=== PATIENT | male | born 1965 | race Caucasian/White ===

== ENCOUNTER 2017-10-29 07:15 | Observation (INO) | payer SELFPAY ==
[2017-10-29] VITALS (8 sets, daily range): BP systolic 128–168; BP diastolic 65–88; PULSE 52–73; RESP 18–22; TEMP 95.8–98.2; O2SAT 96–100
[~2017-10-29] VITALS: Ht 188 cm; Wt 80.0 kg
[~2017-10-29 07:15] MED LIST: KCL20 PO
--- NOTE | 2017-10-29 07:39 | PD ---
HPI Chief Complaint: Respiratory Distress Time Seen by Provider: 07:21 Travel History International Travel<30 days: No Contact w/Intl Traveler<30days: No Traveled to known affect area: No History of Present Illness HPI Patient is a 52-year-old male smoker with a history of COPD presents the emergency department for evaluation of left-sided chest tightness. Patient states last night he began to have a sensation like an elephant was sitting on his chest accompanied with some shortness of breath. He states that anytime he laid down to try to go to sleep shortness of breath got a lot worse and so he decided to call 9 1 this morning. He also endorses cough and congestion for the past few days and thinks that he might have the flu. When discussing with his mother she was concerned that if he had the flu with his COPD that he might get very sick. Denies any fevers or body aches. He states it felt like an elephant was sitting on his chest this morning. He has never had a cardiac catheterization, no history of heart attack. He has not had a checkup in some years, does not take his regular medicines for COPD. EMS reported that his room air saturation was 96% and gave him a breathing treatment on arrival to the emergency department he is feeling better. [facility] Past Medical History COPD: Yes GERD: Yes Sickle Cell Disease: No ?: Not Past Surgical History Other Surgery: Yes (RIGHT HEEL FX 2006, L hip) Social History Alcohol Use: No Tobacco Use: Yes (1 PPD) Substance Use: No Allergies-Medications (Allergen,Severity, Reaction): Coded Allergies: No Known Allergies (Unverified Allergy, Unknown, 10/29/17) Reported Meds & Prescriptions Reported Meds & Active Scripts Active No Active Prescriptions or Reported Medications Review of Systems Except as stated in HPI: all other systems reviewed are Neg Physical Exam Narrative GENERAL: Well-developed, thin in no obvious distress. SKIN: Focused skin assessment warm/dry. HEAD: Atraumatic. Normocephalic. EYES: Pupils equal and round. No scleral icterus. No injection or drainage. ENT: No nasal bleeding or discharge. Mucous membranes pink and moist. NECK: Trachea midline. No JVD. CARDIOVASCULAR: Regular rate and rhythm. No murmur appreciated. 2+ bilateral equal pulses in all 4 extremities, no pedal edema. RESPIRATORY: No accessory muscle use. Scant bibasilar wheeze. Breath sounds equal bilaterally. No increased work of breathing. No retractions. GASTROINTESTINAL: Abdomen soft, non-tender, nondistended. Hepatic and splenic margins not palpable. MUSCULOSKELETAL: No obvious deformities. No clubbing. No cyanosis. No edema. NEUROLOGICAL: Awake and alert. No obvious cranial nerve deficits. Motor grossly within normal limits. Normal speech. PSYCHIATRIC: Appropriate mood and affect; insight and judgment normal. Data Data Last Documented VS Vital Signs Date Time Temp Pulse Resp B/P (MAP) Pulse Ox O2 Delivery O2 Flow Rate FiO2 10/29/17 07:57 Nasal Cannula 2.00 10/29/17 07:57 98 10/29/17 07:18 97.7 56 22 168/88 (114) Orders Orders Electrocardiogram (10/29/17 ) B-Type Natriuretic Peptide (10/29/17 07:32) Ckmb (Isoenzyme) Profile (10/29/17 07:32) Complete Blood Count With Diff (10/29/17 07:32) Comprehensive Metabolic Panel (10/29/17 07:32) Magnesium (Mg) (10/29/17 07:32) Prothrombin Time / Inr (Pt) (10/29/17 07:32) Act Partial Throm Time (Ptt) (10/29/17 07:32) Troponin I (10/29/17 07:32) Ecg Monitoring (10/29/17 07:32) Iv Access Insert/Monitor (10/29/17 07:32) Oximetry (10/29/17 07:32) Oxygen Administration (10/29/17 07:32) Aspirin Chew (Aspirin Chew) (10/29/17 07:45) Sodium Chloride 0.9% Flush (Ns Flush) (10/29/17 07:45) Chest, Pa & Lat (10/29/17 07:32) CKMB (10/29/17 07:35) CKMB% (10/29/17 07:35) Admit Order (Ed Use Only) (10/29/17 ) Labs Laboratory Tests Test 10/29/17 07:35 White Blood Count 12.6 TH/MM3 Red Blood Count 4.67 MIL/MM3 Hemoglobin 14.2 GM/DL Hematocrit 42.0 % Mean Corpuscular Volume 89.9 FL Mean Corpuscular Hemoglobin 30.4 PG Mean Corpuscular Hemoglobin Concent 33.8 % Red Cell Distribution Width 14.0 % Platelet Count 167 TH/MM3 Mean Platelet Volume 11.2 FL Neutrophils (%) (Auto) 67.5 % Lymphocytes (%) (Auto) 19.1 % Monocytes (%) (Auto) 6.8 % Eosinophils (%) (Auto) 5.6 % Basophils (%) (Auto) 1.0 % Neutrophils # (Auto) 8.5 TH/MM3 Lymphocytes # (Auto) 2.4 TH/MM3 Monocytes # (Auto) 0.8 TH/MM3 Eosinophils # (Auto) 0.7 TH/MM3 Basophils # (Auto) 0.1 TH/MM3 CBC Comment DIFF FINAL Differential Comment Prothrombin Time 10.7 SEC Prothromb Time International Ratio 1.1 RATIO Activated Partial Thromboplast Time 27.9 SEC Blood Urea Nitrogen 8 MG/DL Creatinine 0.79 MG/DL Random Glucose 122 MG/DL Total Protein 8.0 GM/DL Albumin 3.6 GM/DL Calcium Level 9.0 MG/DL Magnesium Level 2.2 MG/DL Alkaline Phosphatase 74 U/L Aspartate Amino Transf (AST/SGOT) 42 U/L Alanine Aminotransferase (ALT/SGPT) 73 U/L Total Bilirubin 0.4 MG/DL Sodium Level 139 MEQ/L Potassium Level 4.6 MEQ/L Chloride Level 105 MEQ/L Carbon Dioxide Level 30.4 MEQ/L Anion Gap 4 MEQ/L Estimat Glomerular Filtration Rate 102 ML/MIN Total Creatine Kinase 179 U/L Creatine Kinase MB 4.1 NG/ML Troponin I LESS THAN 0.02 NG/ML B-Type Natriuretic Peptide 96 PG/ML MDM Medical Decision Making Medical Screen Exam Complete: Yes Emergency Medical Condition: Yes Interpretation(s) EKG independently interpreted by me, left bundle branch block, otherwise sinus bradycardia rate 54, intervals otherwise within normal limits. No sgarbossa criteria. Comparison to May 2016 shows no change. Differential Diagnosis ACS, [place], COPD exacerbation. Narrative Course Patient room to the emergency department, he describes his chest as having an elephant sitting on top of it. He is feeling better on arrival to the emergency department, he is a cigarette smoker otherwise his history is negative with the patient has not seen a regular physician in some years. Initial workup does show left bundle branch block but otherwise troponin blood work and a chest x-ray are negative. I discussed with the patient that given his symptoms need to consider cardiac etiology and recommended him for a stress test, he has no primary care physician which to follow-up with therefore will be admitted observation of the chest pain center Diagnosis Primary Impression: Chest tightness or pressure Admitting Information Admitting Physician Requests: Observation Scripts No Active Prescriptions or Reported Meds Condition: Stable Umair Chaudhry MD Oct 29, 2017 07:39
[2017-10-29] MEDS ORDERED: ASPIRIN 81 MG CHEW TAB PO ONE (07:45)
[2017-10-29] MEDS ORDERED: SODIUM CHLORIDE 0.9% FLUSH 10 ML FLUSH IVF PRN (07:45)
[2017-10-29 07:57] LABS: AUTOMATED NEUTROPHIL # 8.5 TH/MM3 (1.8-7.7); BASOPHIL # 0.1 TH/MM3 (0-0.2); EOSINOPHIL # 0.7 TH/MM3 (0-0.4); EOSINOPHIL % 5.6 % (0.0-4.0); HEMOGLOBIN 14.2 GM/DL (13.0-17.0); LYMPH % 19.1 % (9.0-44.0); LYMPHOCYTE # 2.4 TH/MM3 (1.0-4.8); MEAN CELL VOLUME 89.9 FL (80.0-100.0); MEAN CORPUSCULAR HEMOGLOBIN 30.4 PG (27.0-34.0); MEAN CORPUSCULAR HGB CONC 33.8 % (32.0-36.0); MEAN PLATELET VOLUME 11.2 FL (7.0-11.0); MONO % 6.8 % (0.0-8.0); MONOCYTE # 0.8 TH/MM3 (0-0.9); NEUT % 67.5 % (16.0-70.0); PLATELET COUNT 167 TH/MM3 (150-450); RED BLOOD COUNT 4.67 MIL/MM3 (4.50-5.90); WHITE BLOOD COUNT 12.6 TH/MM3 (4.0-11.0)
[2017-10-29 08:04] LABS: INTERNATIONAL NORMALIZED RATIO 1.1 RATIO; PROTHROMBIN TIME - PATIENT 10.7 SEC (9.8-11.6)
--- NOTE | 2017-10-29 08:14 | RADRPT ---
EXAM DATE/TIME: 10/29/2017 07:50 [facility] COMPARISON: No previous studies available for comparison. INDICATIONS : Chest pain. MEDICAL HISTORY : Chronic obstructive pulmonary disease. SURGICAL HISTORY : None. ENCOUNTER: Initial ACUITY: 1 day PAIN SCORE: 0/10 LOCATION: Bilateral chest FINDINGS: Heart size is normal. The lungs are hyperinflated. The lungs are clear. No effusion is seen. CONCLUSION: Hyperinflated lungs. Rizwan Kaminski MD on October 29, 2017 at 8:11 Board Certified Radiologist. This report was verified electronically.
[2017-10-29 08:15] LABS: ALBUMIN 3.6 GM/DL (3.4-5.0); ALT (GPT) 73 U/L (12-78); AST (GOT) 42 U/L (15-37); BICARBONATE 30.4 MEQ/L (21.0-32.0); BLOOD UREA NITROGEN 8 MG/DL (7-18); CHLORIDE 105 MEQ/L (98-107); CREATININE 0.79 MG/DL (0.60-1.30); GLOMERULAR FILTRATION RATE 102 ML/MIN (>89); GLUCOSE,RANDOM 122 MG/DL (74-106); MAGNESIUM 2.2 MG/DL (1.5-2.5); SODIUM (NA) 139 MEQ/L (136-145)
[2017-10-29 08:19] LABS: ALKALINE PHOSPHATASE 74 U/L (45-117); TOTAL BILIRUBIN ADULT 0.4 MG/DL (0.2-1.0); TROPONIN I LESS THAN 0.02 NG/ML (0.02-0.05)
[2017-10-29] MEDS ORDERED: IOHEXOL 350 MG/ML 50 ML BTL (for Cath Lab) OTHER ONE (10:09)
[2017-10-29] MEDS ORDERED: NITROGLYCERIN 0.4 MG SL 25 TABS/BTL SL PRN (10:45)
[2017-10-29] MEDS ORDERED: ONDANSETRON HCL 4 MG/2 ML VIAL IV PUSH PRN (10:45)
[2017-10-29] MEDS ORDERED: ACETAMINOPHEN 500 MG CPLT PO PRN (10:45)
[2017-10-29 11:35] LABS: TROPONIN I LESS THAN 0.02 NG/ML (0.02-0.05)
--- NOTE | 2017-10-29 12:39 | HHI.HP ---
HPI Primary Care Physician No Primary Care Physician Chief Complaint Chest pressure History of Present Illness 52-year-old male with known COPD and GERD presents to emergency room for further evaluation of dyspnea and chest pressure. Developed flulike symptoms including body aches and productive cough. Stayed home from work yesterday due to flu-like symptoms. Onset of dyspnea last evening. Unable to sleep due to dyspnea. Known COPD, however unable to afford inhalers and does not have a PCP. Onset of chest pressure "like an elephant sitting on my chest," 11pm, progressively becoming worse throughout evening. No radiation of pain. Duration approximately 6 hours. No associated symptoms of nausea, vomiting, or diaphoresis. No known precipitating factors. Relieving factors albuterol treatment and oxygen given by [facility], reporting relief almost immediately. Endorses similar chest pressure in the past when first being diagnoses with COPD. Review of Systems General: Recent flulike symptoms beginning , Reports fatigue and productive cough. HEENT: No TRIANA, no vision changes, no nasal congestion or drainage, no dysphasia CV: As stated above. No current chest pain or pressure. Intermittent palpitations, intermittent leg pain, or dizziness. RESP: Known COPD, no medications or inhalers. Dyspnea improved. Productive cough , reports clear, thin phlegm. No hemoptysis GI: No nausea, vomiting, bowel changes, diarrhea, constipation, pain, distention , melena, or blood in the stool. No unintentional weight gain or weight loss. : No dysuria, urgency, frequency EXT: No lower leg edema, no paraesthesias MS: No discomfort or change in ROM NEURO: No change in memory, difficulty with balance, LOC, motor/sensory deficits PSYCH: No anxiety, depression. Current increased situational stress. SKIN: No rashes, no concerning lesions Past Family Social History Allergies: Coded Allergies: No Known Allergies (Unverified Allergy, Unknown, 10/29/17) Past Medical History COPD, GERD, current smoker Past Surgical History Right foot surgery, left hip ORIF Reported Medications Reported Meds & Active Scripts Active No Active Prescriptions or Reported Medications Active Ordered Medications Current Medications Medications (Trade) Dose Ordered Sig/Paul Route Start Time Stop Time Status Last Admin (NS Flush) 2 ml UNSCH PRN IVF 10/29/17 07:45 10/29/17 08:02 (NS Flush) 2 ml BID IV FLUSH 10/29/17 21:00 (Tylenol) 500 mg Q4H PRN PO 10/29/17 10:45 (Zofran Inj) 4 mg Q6H PRN IV PUSH 10/29/17 10:45 (Nitrostat Sl) 0.4 mg Q5M PRN SL 10/29/17 10:45 (Aspirin) 325 mg DAILY PO 10/30/17 09:00 Family History Noncontributory for early onset cardiovascular disease Social History No known coronary artery disease, hypertension, hyperlipidemia, or diabetes. Current smoker, 40 -pack-year history. Denies any alcohol or illegal drug use. . Works as a temple. Endorses an active lifestyle. Past cardiac testing None Physical Exam Vital Signs Vital Signs Date Time Temp Pulse Resp B/P (MAP) Pulse Ox O2 Delivery O2 Flow Rate FiO2 10/29/17 11:01 10/29/17 11:00 57 18 143/77 (99) 100 Room Air 10/29/17 07:57 Nasal Cannula 2.00 10/29/17 07:57 98 Nasal Cannula 2.00 10/29/17 07:18 97.7 56 22 168/88 (114) 100 Physical Exam GENERAL: Alert WN, WD, NAD, pleasant, thin, male who appears older than stated age. HEAD: NC, AT NECK: Supple, no masses, trachea midline CV: RRR, without murmur, rub, gallop, no JVD, S1-S2 no S3-S4. No carotid bruits. Chest wall nontender with palpation. RESP: Diminished throughout bilateral, no crackles, wheeze, or rhonchi. symmetrical chest rise, nonlabored, able to speak in full sentences ABD: Soft, NT, ND, no masses, positive bowel tones, flat BACK: No scoliosis EXT: Pulses +24, no dependent edema MS: Normal tone 4 extremities, no obvious deformities, full range of motion NEURO: CN II through CN XII grossly intact, motor strength 5/5 PSYCH: A+O 3, pleasant affect, appropriate speech, mood, insight and judgment SKIN: Normal turgor, normal texture, no lesions, no rashes, brisk cap refill, even hair distribution, tattoos Laboratory Laboratory Tests Test 10/29/17 07:35 10/29/17 10:55 White Blood Count 12.6 Red Blood Count 4.67 Hemoglobin 14.2 Hematocrit 42.0 Mean Corpuscular Volume 89.9 Mean Corpuscular Hemoglobin 30.4 Mean Corpuscular Hemoglobin Concent 33.8 Red Cell Distribution Width 14.0 Platelet Count 167 Mean Platelet Volume 11.2 Neutrophils (%) (Auto) 67.5 Lymphocytes (%) (Auto) 19.1 Monocytes (%) (Auto) 6.8 Eosinophils (%) (Auto) 5.6 Basophils (%) (Auto) 1.0 Neutrophils # (Auto) 8.5 Lymphocytes # (Auto) 2.4 Monocytes # (Auto) 0.8 Eosinophils # (Auto) 0.7 Basophils # (Auto) 0.1 CBC Comment DIFF FINAL Differential Comment Prothrombin Time 10.7 Prothromb Time International Ratio 1.1 Activated Partial Thromboplast Time 27.9 Blood Urea Nitrogen 8 Creatinine 0.79 Random Glucose 122 Total Protein 8.0 Albumin 3.6 Calcium Level 9.0 Magnesium Level 2.2 Alkaline Phosphatase 74 Aspartate Amino Transf (AST/SGOT) 42 Alanine Aminotransferase (ALT/SGPT) 73 Total Bilirubin 0.4 Sodium Level 139 Potassium Level 4.6 Chloride Level 105 Carbon Dioxide Level 30.4 Anion Gap 4 Estimat Glomerular Filtration Rate 102 Total Creatine Kinase 179 133 Creatine Kinase MB 4.1 3.0 Troponin I LESS THAN 0.02 LESS THAN 0.02 B-Type Natriuretic Peptide 96 Result Diagram: 10/29/1735 10/29/1735 Imaging Last 48 hours Impressions Chest X-Ray 10/29/17 0732 Signed Impressions: Service Date/Time: Sunday, October 29, 2017 07:50 - CONCLUSION: Hyperinflated lungs. Rizwan Kaminski MD Course EKG Normal sinus bradycardia, left bundle branch block Caprini VTE Risk Assessment Caprini VTE Risk Assessment: No/Low Risk (score <= 1) Caprini Risk Assessment Model Point Value = 1 Point Value = 2 Point Value = 3 Point Value = 5 Age 41-60 Minor surgery BMI > 25 kg/m2 Swollen legs Varicose veins or History of unexplained or recurrent spontaneous Oral contraceptives or hormone replacement Sepsis (< 1 month) Serious lung disease, including pneumonia (< 1 month) Abnormal pulmonary function Acute myocardial infarction Congestive heart failure (< 1 month) History of inflammatory bowel disease Medical patient at bed rest Age 61-74 Arthroscopic surgery Major open surgery (> 45 min) Laparoscopic surgery (> 45 min) Malignancy Confined to bed (> 72 hours) Immobilizing plaster cast Central venous access Age >= 75 History of VTE Family history of VTE Factor V Leiden Prothrombin [id number] Lupus anticoagulant Anticardiolipin antibodies Elevated serum homocysteine Heparin-induced thrombocytopenia Other congenital or acquired thrombophilia Stroke (< 1 month) Elective arthroplasty Hip, pelvis, or leg fracture Acute spinal cord injury (< 1 month) Prophylaxis Regimen Total Risk Factor Score Risk Level Prophylaxis Regimen 0-1 Low Early ambulation 2 Moderate Order ONE of the following: *Sequential Compression Device (SCD) *Heparin 5000 units SQ BID 3-4 Higher Order ONE of the following medications: *Heparin 5000 units SQ TID *Enoxaparin/Lovenox 40 mg SQ daily (WT < 150 kg, CrCl > 30 mL/min) *Enoxaparin/Lovenox 30 mg SQ daily (WT < 150 kg, CrCl > 10-29 mL/min) *Enoxaparin/Lovenox 30 mg SQ BID (WT < 150 kg, CrCl > 30 mL/min) AND/OR *Sequential Compression Device (SCD) 5 or more Highest Order ONE of the following medications: *Heparin 5000 units SQ TID (Preferred with Epidurals) *Enoxaparin/Lovenox 40 mg SQ daily (WT < 150 kg, CrCl > 30 mL/min) *Enoxaparin/Lovenox 30 mg SQ daily (WT < 150 kg, CrCl > 10-29 mL/min) *Enoxaparin/Lovenox 30 mg SQ BID (WT < 150 kg, CrCl > 30 mL/min) AND *Sequential Compression Device (SCD) Assessment and Plan Assessment and Plan #1 Chest pain-admitted chest pain center. Begin ruling out ACS including 3 sets of EKGs and cardiac enzymes. Will be seen and evaluated by Dr. Golden Morrison. Discussed possibility of completing nuclear exercise stress test later this afternoon, this will be determined by mirror painter. Discomfort most likely related to COPD, however certainly has risk factors for coronary artery disease. Patient is agreeable to plan of care. #2 History of COPD-albuterol RT treatments every 2 hours when necessary, discussed importance of quitting smoking. No acute findings, reports symptoms completed resolved in [facility]. #3 Tobacco use-strongly encouraged and stressed the importance of tobacco cessation. Instructed quit smoking. Discussed tobacco free [place] classes available. Verbalized understanding. Discussed local free or low cost clinics, including but not limited to the [facility] and [facility]. Telephone numbers to both will be provided upon discharge. 1845 Nuclear stress testing suggest mild redistribution septal wall. Discussed with Dr. Cast. Will admit to construction code administrator cardiology and hospitalist group. Discussed with patient who is agreeable to staying overnight and aware mirror painter will evaluate him tomorrow. Sophia Clark Oct 29, 2017 12:39
[2017-10-29 14:43] LABS: TROPONIN I LESS THAN 0.02 NG/ML (0.02-0.05)
--- NOTE | 2017-10-29 16:09 | PD.CARD.PN ---
Subjective Subjective Remarks The medical record was reviewed and discussed with nurse practitioner. The patient was seen by me personally and diagnostic and therapeutic options discussed. We will rule out ACS using standard chest pain center protocol and if negative evaluate with a stress test. Patient's history is consistent with a flulike illness precipitating extreme shortness of breath with his over lying COPD. Much of his chest pressure is probably related to underlying respiratory issues rather than cardiac however he does have risk factors for cardiac disease we will rule him out with this admission. I have also spoken with him regarding his tobacco use and the severity of his current respiratory problems. Objective Medications Current Medications Medications (Trade) Dose Ordered Sig/Paul Route Start Time Stop Time Status Last Admin (NS Flush) 2 ml UNSCH PRN IVF 10/29/17 07:45 10/29/17 08:02 (NS Flush) 2 ml BID IV FLUSH 10/29/17 21:00 (Tylenol) 500 mg Q4H PRN PO 10/29/17 10:45 (Zofran Inj) 4 mg Q6H PRN IV PUSH 10/29/17 10:45 (Nitrostat Sl) 0.4 mg Q5M PRN SL 10/29/17 10:45 (Aspirin) 325 mg DAILY PO 10/30/17 09:00 (Albuterol Neb) 2.5 mg Q2HR NEB PRN NEB 10/29/17 14:30 Vital Signs / I&O Vital Signs Date Time Temp Pulse Resp B/P (MAP) Pulse Ox O2 Delivery O2 Flow Rate FiO2 10/29/17 15:57 96.3 56 18 128/65 (86) 97 10/29/17 11:40 95.8 54 18 156/81 (106) 96 10/29/17 11:01 10/29/17 11:00 57 18 143/77 (99) 100 Room Air 10/29/17 07:57 Nasal Cannula 2.00 10/29/17 07:57 98 Nasal Cannula 2.00 10/29/17 07:18 97.7 56 22 168/88 (114) 100 Physical Exam GENERAL: Thin but well-developed man resting comfortably SKIN: Warm and dry. HEAD: Atraumatic. Normocephalic. EYES: Pupils equal and round. No scleral icterus. No injection or drainage. ENT: No nasal bleeding or discharge. Mucous membranes pink and moist. NECK: Trachea midline. No JVD. CARDIOVASCULAR: Regular rate and rhythm. RESPIRATORY: No accessory muscle use. Breath sounds are severely diminished but clear to auscultation. GASTROINTESTINAL: Abdomen soft, non-tender, nondistended. Hepatic and splenic margins not palpable. Laboratory Laboratory Tests Test 10/29/17 07:35 10/29/17 10:55 10/29/17 13:45 White Blood Count 12.6 TH/MM3 Red Blood Count 4.67 MIL/MM3 Hemoglobin 14.2 GM/DL Hematocrit 42.0 % Mean Corpuscular Volume 89.9 FL Mean Corpuscular Hemoglobin 30.4 PG Mean Corpuscular Hemoglobin Concent 33.8 % Red Cell Distribution Width 14.0 % Platelet Count 167 TH/MM3 Mean Platelet Volume 11.2 FL Neutrophils (%) (Auto) 67.5 % Lymphocytes (%) (Auto) 19.1 % Monocytes (%) (Auto) 6.8 % Eosinophils (%) (Auto) 5.6 % Basophils (%) (Auto) 1.0 % Neutrophils # (Auto) 8.5 TH/MM3 Lymphocytes # (Auto) 2.4 TH/MM3 Monocytes # (Auto) 0.8 TH/MM3 Eosinophils # (Auto) 0.7 TH/MM3 Basophils # (Auto) 0.1 TH/MM3 CBC Comment DIFF FINAL Differential Comment Prothrombin Time 10.7 SEC Prothromb Time International Ratio 1.1 RATIO Activated Partial Thromboplast Time 27.9 SEC Blood Urea Nitrogen 8 MG/DL Creatinine 0.79 MG/DL Random Glucose 122 MG/DL Total Protein 8.0 GM/DL Albumin 3.6 GM/DL Calcium Level 9.0 MG/DL Magnesium Level 2.2 MG/DL Alkaline Phosphatase 74 U/L Aspartate Amino Transf (AST/SGOT) 42 U/L Alanine Aminotransferase (ALT/SGPT) 73 U/L Total Bilirubin 0.4 MG/DL Sodium Level 139 MEQ/L Potassium Level 4.6 MEQ/L Chloride Level 105 MEQ/L Carbon Dioxide Level 30.4 MEQ/L Anion Gap 4 MEQ/L Estimat Glomerular Filtration Rate 102 ML/MIN Total Creatine Kinase 179 U/L 133 U/L 141 U/L Creatine Kinase MB 4.1 NG/ML 3.0 NG/ML 3.2 NG/ML Troponin I LESS THAN 0.02 NG/ML LESS THAN 0.02 NG/ML LESS THAN 0.02 NG/ML B-Type Natriuretic Peptide 96 PG/ML Imaging Last 24 hours Impressions Chest X-Ray 10/29/17 0732 Signed Impressions: Service Date/Time: Sunday, October 29, 2017 07:50 - CONCLUSION: Hyperinflated lungs. Rizwan Kaminski MD Assessment and Plan Assessment and Plan Assessment and plan discussed with nurse practitioner, this appears to be viral upper respiratory illness superimposed on COPD with resultant shortness of breath and chest pressure. His chest pressure is worse during the period when she he was experiencing wheezing. He is reasonably comfortable at this time. Discussed the imperative of cessation of smoking for both he and his and the need to develop a relationship with a primary care physician for ongoing treatment and care. Code Status Full code Discussed Condition With Condition was discussed with nurse practitioner and with the patient Golden Cast MD Oct 29, 2017 16:08
--- NOTE | 2017-10-29 16:32 | EKG ---
Date Performed: 10/29/2017 Time Performed: 13:35:42 PTAGE: 52 years EKG: SINUS BRADYCARDIA MARKED LEFT AXIS DEVIATION LEFT BUNDLE BRANCH BLOCK ABNORMAL ECG CAN'T RO ISCHEMIA BUT LARGLY UNCHANGED PREVIOUS TRACING : 10/18/2017 07.07 DOCTOR: Golden Cast Interpretating Date/Time 10/29/2017 16:32:09
--- NOTE | 2017-10-29 16:35 | EKG ---
Date Performed: 10/29/2017 Time Performed: 10:49:44 PTAGE: 52 years EKG: SINUS BRADYCARDIA WITH OCCASIONAL SUPRAVENTRICULAR PREMATURE COMPLEXES MARKED LEFT AXIS DEV IATION LEFT BUNDLE BRANCH BLOCK ABNORMAL ECG NO SIG CHANGE PREVIOUS TRACING : 05/30/2016 12.38 DOCTOR: Golden Cast Interpretating Date/Time 10/29/2017 16:32:57
--- NOTE | 2017-10-29 16:35 | EKG ---
Date Performed: 10/29/2017 Time Performed: 07:21:02 PTAGE: 52 years EKG: SINUS BRADYCARDIA LEFT BUNDLE BRANCH BLOCK ABNORMAL ECG NO PREVIOUS TRACING DOCTOR: Golden Cast Interpretating Date/Time 10/29/2017 16:33:11
--- NOTE | 2017-10-29 17:06 | HHI.DCPOC ---
Discharge Care Plan Diagnosis: (1) Atypical chest pain (2) Tobacco abuse Goals to Promote Your Health * To prevent worsening of your condition and complications * To maintain your health at the optimal level Directions to Meet Your Goals Take your medications as prescribed Follow your dietary instruction Follow activity as directed Keep your appointments as scheduled Take your immunizations and boosters as scheduled If your symptoms worsen call your PCP, if no PCP go to Urgent Care Center or Emergency Room Smoking is Dangerous to Your Health. Avoid second hand smoke Call the 24-hour hour crisis hotline for domestic abuse at Sophia Clark Oct 29, 2017 17:06
--- NOTE | 2017-10-29 18:27 | RADRPT ---
EXAM DATE/TIME: 10/29/2017 16:41 [facility] COMPARISON: No previous studies available for comparison. INDICATIONS : Left chest pain. Angina DOSE: 26.3 mCi Tc99m Myoview at stress 8.7 mCi Tc99m Myoview at rest REST HEART RATE: 67 BPM TARGET HEART RATE: 156 BPM MAX HEART RATE: 156 BPM REST BLOOD PRESSURE: 134/62 mmHg MAX BLOOD PRESSURE: 174/92 mmHg EJECTION FRACTION: 58% MEDICAL HISTORY : Gastroesophageal reflux disease. Chronic obstructive pulmonary disease. SURGICAL HISTORY : Right heel, left hip surgery. ENCOUNTER: Initial ACUITY: 1 day PAIN SCALE: 4/10 LOCATION: Left chest TECHNIQUE: The patient underwent upright treadmill exercise in the chest pain center. Continuous ECG tracing wa s monitored during stress. Gated SPECT imaging was performed after stress, and conventional SPECT im aging was performed at rest. The examination was performed on a SPECT/CT scanner, both attenuation-c orrected and non-corrected datasets were reviewed. FINDINGS: DISTRIBUTION: The maximum perfused segment at stress is in the anterior wall. PERFUSION STUDY: There appears to be some diminished perfusion along the septal wall during stress. There is some mild redistribution along the septal wall during rest. This is suspicious for ischemic myocardial changes . The rest of the ventricle is unremarkable. GATED STUDY: A segment of the septal wall appears to be hypokinetic.. CONCLUSION: Findings suggestive mild redistribution along the septal wall suggestive of ischemic myocardial lemons es. A segment of the septal wall appears to be hypokinetic. RISK CATEGORY: Intermediate to high Cruzito Cifuentes MD on October 29, 2017 at 18:20 Board Certified Radiologist. This report was verified electronically.
[2017-10-29] MEDS: SODIUM CHLORIDE 0.9% FLUSH 10 ML FLUSH IV FLUSH SCH (21:00)
[2017-10-30] VITALS (12 sets, daily range): BP systolic 126–157; BP diastolic 69–84; PULSE 48–81; RESP 18; TEMP 97.2–98.2; O2SAT 94–96
[2017-10-30] MEDS: ASPIRIN 325 MG TAB PO SCH (08:32)
[2017-10-30] MEDS: SODIUM CHLORIDE 0.9% FLUSH 10 ML FLUSH IV FLUSH SCH ×2 (08:33→21:00)
--- NOTE | 2017-10-30 08:51 | PD.CONS ---
[facility] By MAIN Garcia Reason for Consult Medical management, abnormal Zenia Primary Care Physician No Primary Care Physician Diagnoses: (1) Abnormal stress test (2) Atypical chest pain (3) Tobacco abuse (4) COPD (chronic obstructive pulmonary disease) (5) Chest tightness or pressure History of Present Illness Patient is a 52-year-old male with history of COPD and GERD who presented to the emergency department with complaint of chest pressure, dyspnea, cough. He states that he developed flulike symptoms on Tuesday. He has had multiple sick contacts at work. No fever or chills since arriving in the hospital. He reported severe chest tightness, worse on the left side of his chest. No radiation of the discomfort. No associated dyspnea or diaphoresis. Chest pressure has resolved. He still reports cough and dyspnea. He was admitted to the chest pain center and serial cardiac enzymes were negative. Cardiac stress test was done and was noted to be abnormal. Cardiology is consulted. Review of Systems Constitutional: DENIES: Fever, Chills, Night Sweats Eyes: DENIES: Blurred vision, Vision loss Ears, nose, mouth, throat: DENIES: Hearing loss Respiratory: COMPLAINS OF: Cough, Wheezing, Sputum production, Shortness of breath Cardiovascular: COMPLAINS OF: Chest pain, Dyspnea on Exertion, DENIES: Palpitations, Lower Extremity Edema Gastrointestinal: DENIES: Abdominal pain, Constipation, Diarrhea, Nausea, Vomiting Genitourinary: DENIES: Urinary frequency, Urinary incontinence, Urgency, Hematuria, Dysuria, Nocturia Musculoskeletal: DENIES: Joint pain, Muscle aches Integumentary: DENIES: Pruritus, Rash Hematologic/lymphatic: DENIES: Bruising Neurologic: DENIES: Headache Past Family Social History Allergies: Coded Allergies: No Known Allergies (Unverified Allergy, Unknown, 10/29/17) Past Medical History COPD GERD Past Surgical History Left hip ORIF Right foot surgery Reported Medications None Family History Brother recently diagnosed with Crohn's disease. Social History [id number] smoking history. Patient states that he just quit smoking. Denies alcohol use. Admits to occasional marijuana use. No IV drug use. Physical Exam Vital Signs Vital Signs Date Time Temp Pulse Resp B/P (MAP) Pulse Ox O2 Delivery O2 Flow Rate FiO2 10/30/17 06:58 56 18 130/69 (89) 94 10/30/17 04:02 81 10/30/17 03:08 98.2 59 18 126/73 (90) 95 10/30/17 00:09 52 10/29/17 20:02 73 10/29/17 19:39 98.2 72 18 132/75 (94) 97 10/29/17 15:57 96.3 56 18 128/65 (86) 97 10/29/17 15:40 59 10/29/17 12:25 52 10/29/17 11:40 95.8 54 18 156/81 (106) 96 10/29/17 11:01 10/29/17 11:00 57 18 143/77 (99) 100 Room Air Physical Exam GENERAL: Well-nourished, well-developed male in no acute distress. HEENT: Normocephalic, atraumatic. Pupils equal, round and reactive. Extraocular movements intact. No scleral icterus. No injection or drainage. Oropharynx is clear. Mucous membranes are moist. Poor dentition. CARDIOVASCULAR: Regular rate and rhythm without murmurs, gallops, or rubs. RESPIRATORY: Diffuse rhonchi. Breathing is non-labored. GASTROINTESTINAL: Abdomen soft, non-tender, nondistended. EXTREMITIES: No lower extremity edema. No calf tenderness. PSYCH: Alert and oriented x 3. Laboratory Laboratory Tests Test 10/29/17 10:55 10/29/17 13:45 Total Creatine Kinase 133 141 Creatine Kinase MB 3.0 3.2 Troponin I LESS THAN 0.02 LESS THAN 0.02 Result Diagram: 10/29/17 0735 10/29/17 0735 Imaging Last Impressions Chest X-Ray 10/29/17 0732 Signed Impressions: Service Date/Time: Sunday, October 29, 2017 07:50 - CONCLUSION: Hyperinflated lungs. Rizwan Kaminski MD Myocardial Perfusion Scan Nuc Med 10/29/17 0000 Signed Impressions: Service Date/Time: Sunday, October 29, 2017 16:41 - CONCLUSION: Findings suggestive mild redistribution along the septal wall suggestive of ischemic myocardial changes. A segment of the septal wall appears to be hypokinetic. RISK CATEGORY: Intermediate to high Cruzito Cifuentes MD Assessment and Plan Assessment and Plan 1. Chest pain, abnormal stress test: Cardiology consultation is pending. May need cardiac catheterization. Keep n.p.o. Continue aspirin, nitroglycerin. 2. COPD: Not currently an acute exacerbation. Albuterol as needed. Stable on room air currently. Patient has reported flulike symptoms over the past few days. Check influenza antigen. 3. GERD: PPI. 4. DVT prophylaxis: Heparin. Problem Qualifiers (1) COPD (chronic obstructive pulmonary disease): Qualified Codes: J44.9 - Chronic obstructive pulmonary disease, unspecified Gilbert Hand MD Oct 30, 2017 08:51
[2017-10-30] MEDS: PANTOPRAZOLE SOD 40 MG DELAYED RELEASE TAB PO SCH (10:07)
--- NOTE | 2017-10-30 10:59 | MB ---
cc: TARI SAUNDERS M.D. DATE OF CONSULTATION: 10/30/2017. REASON FOR CONSULTATION: Abnormal nuclear stress test, chest pain. HISTORY OF PRESENT ILLNESS: The patient is a 52-year-old white male with a history of COPD, gastroesophageal reflux disease who was in his usual state of health up until about a week prior to admission when he began to experience intermittent episodes of substernal chest "pressure" associated with shortness of breath. The episodes initially would last only a few minutes. On the evening of admission, he awoke with the chest discomfort so he came to the emergency room for further evaluation and treatment. The episode which awoke him from sleep lasted a few hours. He denies pleurisy, lightheadedness, syncope, near-syncope, palpitations, pedal edema, paroxysmal nocturnal dyspnea. He has noted increasing dyspnea in the last couple weeks which he felt was due to COPD. He notes a nonproductive cough chronically as well as intermittent mild wheezing. PAST MEDICAL HISTORY: 1. COPD. 2. Gastroesophageal reflux disease. CARDIAC MEDICATIONS AT HOME: None. ALLERGIES: NO KNOWN DRUG ALLERGIES. FAMILY HISTORY: There is no significant family history of early myocardial infarction. SOCIAL HISTORY: The patient smokes about a pack of cigarettes per day. He denies alcohol or drug abuse. REVIEW OF SYSTEMS: Review of systems as in the history of present illness otherwise negative or noncontributory. He also denies headache, abdominal pain, melena, bright red blood per rectum. He frequently experiences "heartburn". PHYSICAL EXAMINATION: VITAL SIGNS: On physical examination, blood pressure 130/69 with a pulse of 56, respirations 18. GENERAL: In general, he is a well-developed, well-nourished white male in no acute distress. HEAD, EYES, EARS, NOSE, THROAT: On HEENT examination, jugular venous pressure is normal. Carotid pulses are 2+ bilaterally and without bruits. CHEST: Examination of the chest reveals diffuse mild expiratory wheezes. CARDIAC: On cardiac examination, he has a regular rhythm and rate without S3, S4 or murmur. ABDOMEN: On abdominal examination, he has a soft, nontender abdomen. Bowel sounds are present. There is no definite hepatosplenomegaly. EXTREMITIES: No cyanosis, clubbing or edema. Peripheral pulses are normal throughout. EKGS: EKG from 10/29 at 10:49 a.m. shows sinus rhythm, occasional premature atrial complex, left bundle-branch block. EKG from 02:24 at 01:35 p.m. shows sinus rhythm, left bundle-branch block, anterior T-wave inversion consider ischemia. LABORATORY DATA: Laboratory data includes WBC 12.6, hemoglobin 14.2, platelets 167, potassium 4.6, BUN 8, creatinine 0.79, negative cardiac enzymes, INR 1.1. IMAGING STUDIES: Chest x-ray shows no acute disease. IMPRESSION: Chest pains, abnormal nuclear stress test in this 52-year-old white male with a history of COPD, gastroesophageal reflux disease. Some of his chest pains over the last week are suggestive of angina in an overall unstable pattern with frequent episodes at rest. Some of his chest discomforts are atypical for myocardial ischemia. His nuclear stress test images have been reviewed. He does indeed have a reversible septal defect, which is small; however, he appears to also have a moderate sized area of moderate lateral ischemia as well. His EKG, although it has underlying left bundle branch block, shows dynamic anterior T-wave changes suggestive of ischemia. He may very well have multivessel coronary artery disease. In light of the instability of his symptoms, I have recommended he undergo cardiac catheterization with probable percutaneous coronary intervention. The nature of these procedures and potential risks including but not limited to , myocardial infarction, stroke, arrhythmia, bleeding, infection, renal failure have been outlined to the patient. He agrees to proceed. RECOMMENDATIONS: 1. Cardiac catheterization tomorrow. 2. Change the subcutaneous heparin to heparin drip. 3. Continue daily aspirin. 4. Start nitro paste; avoid beta marybel therapy with his underlying bradycardia. MD TERE Sierra/GEGE /10:40 AM /10:49 AM DARIO
[2017-10-30] MEDS ORDERED: HEPARIN SODIUM - IV 10,000 UNITS/10 ML VIAL IV PUSH ONE (11:00)
[2017-10-30] MEDS ORDERED: DIAZEPAM 10 MG TAB PO SCH (11:00)
[2017-10-30] MEDS ORDERED: diphenhydrAMINE HCL 50 MG CAP PO SCH (11:00)
[2017-10-30] MEDS ORDERED: MIDAZOLAM HCL 2 MG/2 ML VIAL IV PUSH SCH (11:00)
[2017-10-30] MEDS: RESP: ALBUTEROL 2.5 MG/3 ML NEB (PRN) NEB (12:24)
[2017-10-30] MEDS: SODIUM CHLOR 0.9% 1000 ML INJ 1,000 ML IV SCH ×3 (12:38→22:18)
[2017-10-30 12:48] LABS: INTERNATIONAL NORMALIZED RATIO 1.1 RATIO; PROTHROMBIN TIME - PATIENT 10.9 SEC (9.8-11.6)
[2017-10-30] MEDS: NITROGLYCERIN 2% OINT 1 GM PACKET TOPICAL SCH ×2 (13:00→19:11)
[2017-10-30] MEDS: HEPARIN-D5W 25,000 U/250 ML 250 ML IV PRN (13:28)
[2017-10-30] MEDS ORDERED: HEPARIN SODIUM - SQ 10,000 UNITS/ML VIAL SQ SCH (14:00)
--- NOTE | 2017-10-30 14:36 | TR ---
Date Performed: 10/29/2017 Time Performed: 17:34:39 DOCTOR: Golden Cast DRUG LIST: CLINICAL HISTORY: CHEST PAIN REASON FOR TEST: Chest pain REASON FOR ENDING: OBSERVATION: CONCLUSION: Jcarlos protocol completed. Stopped sec to reaching target heart rate and leg fatigue. Maximum AJ=493 Target HR Achieved=94.0% Maximum XW=926/90 Total Exercise Time=9:59. No reprod chest pain. Rare PVC. L BBB at baseline. Great exercise tolerance. Normal bp response. Recovery quick and u nremarkable. Nuclear images pending. COMMENTS:
[2017-10-30] MEDS ORDERED: HEPARIN SODIUM - IV 10,000 UNITS/10 ML VIAL IV PUSH PRN ×2 (17:00)
[2017-10-31 00:10] VITALS: BP 127/64; PULSE 52; RESP 18; TEMP 98.1; O2SAT 95
[2017-10-31] MEDS: NITROGLYCERIN 2% OINT 1 GM PACKET TOPICAL SCH ×2 (00:37→06:15)
[2017-10-31] MEDS: RESP: ALBUTEROL 2.5 MG/3 ML NEB (PRN) NEB (02:05)
[2017-10-31 02:07] VITALS: O2SAT 95
[2017-10-31 03:58] VITALS: BP 127/77; PULSE 58; RESP 18; TEMP 97.9; O2SAT 95
[2017-10-31 04:05] VITALS: PULSE 58
[2017-10-31] MEDS: SODIUM CHLOR 0.9% 1000 ML INJ 1,000 ML IV SCH (06:20)
[2017-10-31 07:09] VITALS: BP 146/71; PULSE 49; RESP 18; TEMP 97.6; O2SAT 95
[2017-10-31] MEDS: ASPIRIN 325 MG TAB PO SCH (08:29)
[2017-10-31] MEDS: PANTOPRAZOLE SOD 40 MG DELAYED RELEASE TAB PO SCH (08:29)
[2017-10-31] MEDS: SODIUM CHLORIDE 0.9% FLUSH 10 ML FLUSH IV FLUSH SCH (08:29)
[2017-10-31] MEDS: HEPARIN-D5W 25,000 U/250 ML 250 ML IV PRN (08:33)
--- NOTE | 2017-10-31 09:05 | HHI.PR ---
Subjective Remarks Follow up chest pain. Patient going for cardiac cath this morning. Denies chest pain, dyspnea. Reports headache. Objective Vitals Vital Signs Date Time Temp Pulse Resp B/P (MAP) Pulse Ox O2 Delivery O2 Flow Rate FiO2 10/31/17 07:09 97.6 49 18 146/71 (96) 95 10/31/17 04:05 58 10/31/17 03:58 97.9 58 18 127/77 (94) 95 10/31/17 02:07 95 21 10/31/17 00:10 98.1 52 18 127/64 (85) 95 10/30/17 23:51 48 10/30/17 20:09 56 10/30/17 19:49 97.9 66 18 136/76 (96) 96 10/30/17 15:40 50 10/30/17 15:39 98.2 62 18 145/77 (99) 95 10/30/17 12:45 95 21 10/30/17 11:37 97.2 61 18 157/84 (108) 95 I/O 10/30/17 10/30/17 10/30/17 10/31/17 10/31/17 10/31/17 07:00 15:00 23:00 07:00 15:00 23:00 Intake Total 500 ml 780 ml Balance 500 ml 780 ml Intake Oral 500 ml 780 ml # Voids 3 4 Result Diagram: 10/29/17 0735 10/29/17 0735 Imaging Last Impressions Chest X-Ray 10/29/17 0732 Signed Impressions: Service Date/Time: Sunday, October 29, 2017 07:50 - CONCLUSION: Hyperinflated lungs. Rizwan Kaminski MD Myocardial Perfusion Scan Nuc Med 10/29/17 0000 Signed Impressions: Service Date/Time: Sunday, October 29, 2017 16:41 - CONCLUSION: Findings suggestive mild redistribution along the septal wall suggestive of ischemic myocardial changes. A segment of the septal wall appears to be hypokinetic. RISK CATEGORY: Intermediate to high Cruzito Cifuentes MD Objective Remarks General: No acute distress. Heart: Regular rate and rhythm. No murmur. Lungs: Clear to auscultation bilaterally. No wheezes, rales, or rhonchi. Breathing is nonlabored. Abdomen: Soft, nontender, nondistended. Extremities: No lower extremity edema. Psych: Alert and oriented. Procedures None Urinary Catheter: No Vascular Central Line Catheter: No A/P Problem List: (1) Abnormal stress test ICD Code: R94.39 - Abnormal result of other cardiovascular function study (2) Atypical chest pain ICD Code: R07.89 - Other chest pain (3) Tobacco abuse ICD Code: Z72.0 - Tobacco use (4) COPD (chronic obstructive pulmonary disease) ICD Code: J44.9 - Chronic obstructive pulmonary disease, unspecified (5) Chest tightness or pressure ICD Code: R07.89 - Other chest pain Status: Acute Assessment and Plan 1. Chest pain, abnormal stress test: Appreciate cardiology recommendations. Going for cardiac catheterization this morning. Continue aspirin. 2. COPD: Not currently an acute exacerbation. Albuterol as needed. Stable on room air currently. Patient has reported flulike symptoms over the past few days. Influenza antigen ordered. 3. GERD: PPI. 4. Headache: Possibly secondary to nitroglycerin. Stop Nitropaste. Patient is no longer having chest pain. 5. DVT prophylaxis: Heparin. Discharge Planning Pending cardiology clearance. Problem Qualifiers (1) COPD (chronic obstructive pulmonary disease): Qualified Codes: J44.9 - Chronic obstructive pulmonary disease, unspecified Gilbert Hand MD Oct 31, 2017 09:04
[2017-10-31] MEDS ORDERED: HEPARIN SODIUM - IV 10,000 UNITS/10 ML VIAL ONE (09:35)
[2017-10-31] MEDS ORDERED: NITROGLYCERIN INJ 5 ML ONE (09:35)
[2017-10-31] MEDS ORDERED: HEPARIN-NS/PF FLUSH BAG 2,000 ML IV FLUSH ONE (09:35)
[2017-10-31] MEDS ORDERED: VERAPAMIL HCL 5 MG/2 ML VIAL ONE (09:35)
[2017-10-31] MEDS ORDERED: MIDAZOLAM HCL 2 MG/2 ML VIAL ONE (09:45)
--- NOTE | 2017-10-31 10:09 | CATHPROC ---
[facility] HIS Report Study Information Study Number Admission Scheduled Start Study Start [id number] Oct 29 2017 10:08AM 10/30/2017 Oct 31 2017 9:21AM [place] [facility] Cardiac Catheterization Admit Source Facility Department Emergency department [facility] Manager Physician and Clinical Staff Initial [place] Printing Manager Tramaine Swift,RN Printing Manager Sukh Yuen,RN Recorder [place],RT(R) Scrub Stephan Licona RCIS(BS) Procedures Performed Procedure Location (Site) Vessel Name Coronary Angiograms LCA Left Coronary Coronary Angiograms RCA Right Coronary L Heart Cath LV Gram-hand inj. LV LV Ventricle Wire insertion Radial (right) Radial Art. Equipment Time Program And Research Coordinator Description Size Mfg Part Number Used/Scraped TRANSDUCER, TRUWAVE [id number] 09:40 MILES ROBLES * Used W/STOCKCOCK *[id number] *[id number] 09:40 MALLINCKRODT SYRINGE, ANGIOMAT 150ML 150ML *[id number] Used 2S oneDrum CONCEPT DRAPE, RADIAL FEMORAL FULL 09:40 * [id number] *[id number] Used DEVELOPMENT BODY [id number] 09:40 RRT Global PACK, CCL CUSTOM * Used *[id number] 09:40 RRT Global SUPPORT, ARTERIAL ADULT 43405 *[id number] Used [id number] 09:40 Digital Theatre PACER PEN, SKIN DUAL W/ RULER * Used *[id number] BAND, RADIAL COMPRESSION TR [id number] 10:02 [employer] MEDICAL 24CM Used SHORT 24 *[id number] SHEATH, FR6 RADIAL PRELUDE 09:40 Yippy FR 6 [id number] Used EASE 11CM [id number] 09:40 Yippy WIRE, EXCHANGE 260CM 3MMJ 260CM Used *[id number] 09:40 NAMIC MANIFOLD, 4 PORT * Used *[id number] 09:40 NYCOMED OMNIPAQUE, 350 MG, 150ML 150ML [id number] Used 09:56 NYCOMED OMNIPAQUE, 350 MG, 150ML 150ML [id number] Used [id number] 09:40 KANG MEDICAL BLANKET,WARM AIR CCL * Used *[id number] CATHETER, FR5 OPTITORQUE [id number] 09:36 [employer]ERE[employer] Deal MEDICAL FR 5 Used RADIAL TIG 4.0 *[id number] History: Current Medications Medication Dosage/Unit Route Frequency Last Date/Time Taken ASA History: Allergies Allergy Reaction No Known Allergies History: Risk Factors Family History of Hypertension Dyslipidemia Previous MS Previous Heart Failure Premature CAD No No No No No Prior Valve Prior PCI Prior CABG Surgery No No No Cerebrovascular Peripheral Artery Chronic Lung On Dialysis Diabetes Disease Disease Disease No No No Yes No History: Risk Factors Selection Items Current Smoker History: Symptoms/Diagnosis Selection Items SOB History: Stress Tests Stress or Imaging Studies Performed Yes Standard Exercise Stress Test No Stress Echo No Stress Test SPECT Stress Test SPECT Result Stress Test SPECT Ischemia Risk/Extent Yes Positive Intermediate Stress Test CMR No Cardiac CTA Coronary Calcium Score No No History: Other Disease Selection Items COPD Gerd History: Other Current Smoker Method Packs a Day Years Used Pack Years Yes Cigarettes 1 40 40 Labs Hgb (g/dl) Hct (%) RBC (MIL/MM3) WBC (l/cumm) Platelets (thousands) 11.60-17.00 35.00-51.00 4.00-5.90 4.00-11.00 150.00-450.00 14.2 42 4.6 12.6 167 Glucose (mg/dl) BUN (mg/dl) Creatinine (mg/dl) BUN:Creatinine (1:x) 74.00-106.00 7.00-18.00 0.50-1.30 10.00-20.00 122 8 0.7 11.4 Na (meq/l) K (meq/l) Cl (meq/l) CO2 (mmol/L) Ca (mg/dl) 136.00-145.00 3.50-5.10 98.00-107.00 21.00-32.00 8.50-10.10 139 4.6 105 30.4 9 PT (sec) PTT (sec) INR (PTT:PT) 9.80-11.60 24.30-30.10 0.90-1.10 10.7 32 1.1 Troponin I (ng/ml) CPK (u/l) CPK-MB (ng/ML) 0.02-0.05 26.00-308.00 0.50-3.60 0.02 141 3.2 Medication Medication Total Dose (Bolus/Oral) Medication Total Dosage/Unit 1% XYLOCAINE 20 mL RADIAL COCKTAIL 5 mL (Bolus) VERSED 2 mg Medications (Bolus/Oral) Medication Time Given Dosage/Unit Administered By Reason 1% XYLOCAINE 10/31/2017 9:52:28 AM 20 mL Young Abreu 20 mL 1% XYLOCAINE given by Young Abreu in Right Radial via Subcutaneous. VERSED 10/31/2017 9:52:37 AM 2 mg Tramaine Swift 2 mg VERSED given by Tramaine Swift RN in Left Antecubital via Peripheral IV. Ntg 200mcg Verapamil 2.5mg Heparin RADIAL COCKTAIL 10/31/2017 9:54:54 AM 5 mL (Bolus) Tramaine Swift 2500U 5 mL (Bolus) RADIAL COCKTAIL given by Tramaine Swift RN via Radial. Using [Solution Name]. Reason: N tg 200mcg Verapamil 2.5mg Heparin 2500U. NO VERAPAMIL IN COCKTAIL Medication (Drip) Medication Time Given Dosage/Unit Concentration/Unit Diluent (ml) Solution IV Solutions 10/31/2017 9:35:13 AM 0 mL (IV) 500 NaCl .9 Patient arrived on IV Solutions in Left Antecubital via Peripheral IV. Pump/Drip Flow = 20 ml/hr usin g NaCl .9. Initial Case Assessment Cardiovascular HR Rhythm NIBP Chest Pain 48 Sinus/Jefe 132/86 0 Edema Present Skin color Skin None Normal Warm Dry Circulatory - Right Pulses Dorsalis Pedis Femoral 1 3 Scale (0,1,2,3,4,d) Circulatory - Left Pulses Dorsalis Pedis Femoral 3 3 Scale (0,1,2,3,4,d) Neurological State Oriented to time-place- Alert Moves all extremities person Respiration - General Respiration Rate SpO2 (%) O2 (lpm) (B/min) 11 98 0 Final Case Assessment Cardiovascular HR Rhythm NIBP Chest Pain 57 jefe 125/73 0 Edema Present Skin color Skin None Normal Warm Circulatory - Right Pulses Dorsalis Pedis Femoral 1 3 Scale (0,1,2,3,4,d) Circulatory - Left Pulses Dorsalis Pedis Femoral 3 3 Scale (0,1,2,3,4,d) Circulatory - Lower Extremities Color Lower Right Color Lower Left Normal Normal Neurological State Oriented to time-place- Alert Moves all extremities person Respiration - General Respiration Rate SpO2 (%) (B/min) 9 94 Chronological Log Time Study Chronological Log 9:28:37 Patient arrived via Bed. 9:28:38 Patient Name, D.O.B, / Armband Verified By R.N. 9:28:40 Consent signed by the physician and the patient and verified by the [facility] Manager staff. 9::41 Pre-op and post- op instructions given; patient acknowledges understanding of instructions. 9:28:42 Verbal Stimulation=2 Physical Stimulation=2 Airway=2 Respiration=2 TOTAL=8. (0=absent, 1=li mited, 2=present) 9:28:43 Presedation assessment performed by [facility] Manager RN. 9:28:58 Patient has been NPO for More than 6Hrs. 9:29:10 Allens test performed on the right radial and ulnar artery. 9:29:13 Skin Breakdown- none per patient. 9:29:15 Patient Warmer Placed on the Table. 9:29:16 Piper Prominences Protected 9:29:21 A # 20 IV was noted in the Wrist (left). Grade = 0 9:34:55 A # 20 IV was noted in the Antecubital (left). Grade = 0 9:35:13 Patient arrived on IV Solutions in Left Antecubital via Peripheral IV. Pump/Drip Flow = 20 ml/hr using NaCl .9. 9:35:47 History and physical on the chart or being dictated. Assessment: Initial Case, HR=48 BPM, Rhythm=Sinus/Jefe, VQWT=817/86 mmhg, Chest Pain=0, Edema= None, Color=Normal, Skin = Warm, Dry Right Pulses: Vicente Ped=1, Femoral=3 9:35:49 Left Pulses: Vicente Ped=3, Femoral=3 Neurological: State=Alert, Ox3, WAN Respiration: Resp=11 B/min, SpO2=98 %, O2=0 lpm Vitals capture started with the following parameters, Patient=Adult, Interval=5 min, Initial Pr omgavl=773 mmHg, 9:35:52 Deflation Rate=5 mmHg, Cuff placed on Left Arm Vitals capture started with the following parameters, Patient=Adult, Interval=5 min, Initial Pr rmkzmt=273 mmHg, 9:37:08 Deflation Rate=5 mmHg, Cuff placed on Left Arm 9:38:23 HR=51 bpm, OUSH=792/86 mmhg, SpO2=99.0 %, Resp=9 B/min, Pain=0, Scout=10, Vogel=2 9:43:30 HR=45 bpm, OIUG=560/85 mmhg, SpO2=99.0 %, Resp=8 B/min, Pain=0, Scout=10, Vogel=2 9:44:48 MD paged 9:44:52 Reference ECG taken 9:45:58 MD responded 9:48:14 Pressure channel 1 zeroed. 9:48:21 HR=47 bpm, CJDM=110/80 mmhg, SpO2=98.0 %, Resp=9 B/min, Pain=0, Scout=10, Vogel=2 9:49:42 MD arrived. Time Out. Correct patient, correct procedure, correct physician, power injector not loaded with contrast with surgical 9:52:10 team present. Time Out Concurred by MD and individual staff in procedure. 9:52:18 Case Start 9:52:21 Verbal Stimulation=2 Physical Stimulation=2 Airway=2 Respiration=2 TOTAL=8. (0=absent, 1=jacobo ited, 2=present) 9:52:28 20 mL 1% XYLOCAINE given by Young Abreu in Right Radial via Subcutaneous. 9:52:37 2 mg VERSED given by Tramaine Swift, CAROLE in Left Antecubital via Peripheral IV. 9:53:30 HR=43 bpm, PWTP=459/83 mmhg, SpO2=99.0 %, Resp=9 B/min, Pain=0, Scout=10, Vogel=2 9:54:27 Access site was Radial Artery. 9:54:34 A wire was inserted via Radial (right). A SHEATH, FR6 RADIAL PRELUDE EASE 11CM FR 6 was advanced into the Radial (right) using the Perc utaneous 9:54:44 technique. 5 mL (Bolus) RADIAL COCKTAIL given by Tramaine Swift, CAROLE via Radial. Using [Solution Name]. [place] son: Ntg 200mcg 9:54:54 Verapamil 2.5mg Heparin 2500U. NO VERAPAMIL IN COCKTAIL A CATHETER, FR5 OPTITORQUE RADIAL TIG 4.0 FR 5 was advanced over a wire. OMNIPAQUE, 350 MG, 150 ML 150ML 9:56:11 was used for injections. 9:56:43 The LCA was injected and visualized at various angles. OMNIPAQUE, 350 MG, 150ML 150ML used. Recorded Pressure: Ao, HR=69, Condition=Condition 1 9:57:32 (Aorta) Ao 103/59/78 9:57:50 HR=69 bpm, PCQR=498/69 mmhg, SpO2=93.0 %, Resp=16 B/min, Pain=0, Scout=10, Vogel=2 9:58:29 The RCA was injected and visualized at various angles. OMNIPAQUE, 350 MG, 150ML 150ML used. After removing the current catheter a MPA-2 INFINITI CATHETER FR 6 was advanced over a WIRE, EX CHANGE 260CM 9:59:33 3MMJ 260CM. Recorded Pressure: LV, HR=64, Condition=Condition 1 10:00:50 (Left Ventricle) LV 123/-13/-7 10:01:06 The LV was manually injected with 10 cc's and visualized. OMNIPAQUE, 350 MG, 150ML 150ML us ed. Recorded Pressure: LV, Ao, HR=65, Condition=Condition 1 10:01:13 (Left Ventricle) LV 124/-9/-5, (Aorta) Ao 118/57/81 10:01:43 Catheter was removed 10:02:00 Case End Assessment: Final Case, HR=57 BPM, Rhythm=jefe, KSIA=144/73 mmhg, Chest Pain=0, Edema=None, Color=Normal, Skin = Warm Right Pulses: Vicente Ped=1, Femoral=3 Left Pulses: Vicente Ped=3, Femoral=3 10:02:13 Lower Right Extremities: Color=Normal Lower Left Extremities: Color=Normal Neurological: State=Alert, Ox3, WAN Respiration: Resp=9 B/min, SpO2=94 % 10:02:43 HR=55 bpm, MBAZ=388/73 mmhg, SpO2=94.0 %, Resp=8 B/min, Pain=0, Scout=10, Vogel=2 10:02:55 Catheter(s) removed without difficulty Radial Compression Device Used. 13 mLs of air placed in BAND, RADIAL COMPRESSION TR SHORT 24 2 4CM. Affected 10:02:59 hand 95 % O2 saturation. 10:03:10 Sterile dressing applied to site 10:03:11 No case complications noted. 10:03:11 Cine recording checked. 10:03:14 Bedside Report will be given. 10:04:14 A Left Heart Cath was performed. 10:04:15 Patient moved to stretcher 10:04:17 Clinical correlaton risk stratification. 10:07:16 Vitals capture stopped. End Study - Contrast Media Used In Study Contrast Total Opened (mL) Total Used (mL) Total Wasted (mL) Omnipaque 50 50 0 End Study - Maximum Contrast Load Max Contrast Load (mL) 571.4 End Study - Radiation Exposure Fluoro Time (minutes) 2.2 End Study - Sheaths Sheaths Pulled By Sheath Hold Time (min) Stephan Licona End Study - Patient Disposition Complications Transferred To No Outpatient Bed
--- NOTE | 2017-10-31 10:13 | PD.CARD.PN ---
Subjective Subjective Remarks No CP, dyspnea. Feels "pretty good". Objective Medications Item Value Date Time Aspirin 325 mg 10/30/17 0900 (Aspirin) DAILY/PO 10/31/17 0829 Current Medications Medications (Trade) Dose Ordered Sig/Paul Route Start Time Stop Time Status Last Admin (NS Flush) 2 ml UNSCH PRN IVF 10/29/17 07:45 10/29/17 08:02 (NS Flush) 2 ml BID IV FLUSH 10/29/17 21:00 10/30/17 08:33 (Tylenol) 500 mg Q4H PRN PO 10/29/17 10:45 10/31/17 06:20 (Zofran Inj) 4 mg Q6H PRN IV PUSH 10/29/17 10:45 (Nitrostat Sl) 0.4 mg Q5M PRN SL 10/29/17 10:45 (Aspirin) 325 mg DAILY PO 10/30/17 09:00 10/31/17 08:29 (Albuterol Neb) 2.5 mg Q2HR NEB PRN NEB 10/29/17 14:30 10/31/17 02:05 (Protonix) 40 mg DAILY PO 10/30/17 09:00 10/31/17 08:29 (Heparin Inj) 5,000 units UNSCH PRN IV PUSH 10/30/17 17:00 (Heparin Inj) 2,500 units UNSCH PRN IV PUSH 10/30/17 17:00 10/30/17 19:11 Heparin Sodium/ Dextrose 250 ml @ 9.6 mls/hr TITRATE PRN IV 10/30/17 11:00 10/31/17 08:33 Sodium Chloride 1,000 ml @ 100 mls/hr Q10H IV 10/30/17 10:46 11/04/17 10:45 10/31/17 06:20 (Benadryl) 50 mg [employer] PO 10/30/17 11:00 11/03/17 10:59 (Valium) 10 mg [employer] PO 10/30/17 11:00 11/03/17 10:59 (Versed Inj) 1 mg [employer] IV PUSH 10/30/17 11:00 11/03/17 10:59 Vital Signs / I&O Vital Signs Date Time Temp Pulse Resp B/P (MAP) Pulse Ox O2 Delivery O2 Flow Rate FiO2 10/31/17 07:09 97.6 49 18 146/71 (96) 95 10/31/17 04:05 58 10/31/17 03:58 97.9 58 18 127/77 (94) 95 10/31/17 02:07 95 21 10/31/17 00:10 98.1 52 18 127/64 (85) 95 10/30/17 23:51 48 10/30/17 20:09 56 10/30/17 19:49 97.9 66 18 136/76 (96) 96 10/30/17 15:40 50 10/30/17 15:39 98.2 62 18 145/77 (99) 95 10/30/17 12:45 95 21 10/30/17 11:37 97.2 61 18 157/84 (108) 95 I/O 10/30/17 10/30/17 10/30/17 10/31/17 10/31/17 10/31/17 07:00 15:00 23:00 07:00 15:00 23:00 Intake Total 500 ml 780 ml 1000 ml Output Total 800 ml Balance 500 ml 780 ml 200 ml Intake Oral 500 ml 780 ml IV Total 1000 ml Output Urine Total 800 ml # Voids 3 4 Physical Exam GENERAL: Well developed, well nourished. No acute distress. HEENT: Jugular venous pressure is normal. CHEST: Lungs clear to auscultation anteriorly. CARDIAC: Regular rate and rhythm without S3, S4, or murmur. ABDOMEN: Soft, nontender, no hepatosplenomegaly. Bowel sounds present. EXTREMITIES: No clubbing, cyanosis, or edema. Laboratory Laboratory Tests Test 10/30/17 12:17 10/30/17 18:35 10/31/17 01:35 10/31/17 08:20 Prothrombin Time 10.9 SEC Prothromb Time International Ratio 1.1 RATIO Activated Partial Thromboplast Time 26.0 SEC 32.0 SEC 36.4 SEC 42.5 SEC Assessment and Plan Problem List: (1) Abnormal stress test ICD Codes: R94.39 - Abnormal result of other cardiovascular function study Status: Acute Plan: Stable overnight. Angiographically normal coronary arteries on cath today though left ventriculogram reveals evidence for Tako-Tsubo syndrome with apical akinesis, EF 40%. HR's too low for beta marybel. Rec CHARLINE-I, aspirin. OK to discharge later today from a cardiac standpoint. Code Status full code Discussed Condition With patient Young Abreu MD Oct 31, 2017 10:13
[2017-10-31] MEDS ORDERED: MISC INFORMATION XX ONE (10:15)
--- NOTE | 2017-10-31 10:25 | MA ---
cc: TARI SAUNDERS M.D. DATE 10/31/2017 PROCEDURE Left heart catheterization, selective coronary angiography, left ventriculography. PROCEDURE NOTES The patient was brought to the cardiac catheterization laboratory in a fasting state after having signed informed consent. The right radial region was prepped and draped as per policy and anesthetized with 1% lidocaine. Arterial access was obtained via the right radial artery and a 6 Maltese sheath placed. Coronary arteriography was performed using a [place] catheter. Left ventriculography was done using a multipurpose catheter. There were no apparent immediate complications. A radial artery compression band was applied to his right wrist at the end of the case to achieve good hemostasis. HEMODYNAMIC DATA Left ventricle 124 with an end-diastolic pressure of 10. Aorta 118/57 with a mean of 81. There was no significant transvalvular aortic gradient on pullback of the pigtail catheter. CORONARY ARTERIOGRAPHY The left main is normal. The left anterior descending gives rise to a fairly large diagonal. No disease is seen in the LAD system. The left circumflex is a large co-dominant vessel with no disease. It gives rise to a medium size obtuse marginal. The right coronary artery is a relatively large co-dominant vessel giving rise to the posterior descending artery. No disease is seen in the right coronary artery. LEFT VENTRICULOGRAPHY Contrast injection of the left ventricle reveals severe apical hypokinesis. Ejection fraction is estimated at 40%. CONCLUSIONS 1. Angiographically normal coronary arteries. 2. Evidence for Takotsubo syndrome with severe apical hypokinesis and reduced ejection fraction of 40%. MD TERE Sierra/JO /10:04 AM /10:19 AM DARIO
[2017-10-31] MEDS ORDERED: ENALAPRIL MALEATE 5 MG TAB PO SCH (11:30)
[2017-10-31] MEDS ORDERED: ASA325 PO (13:39)
[2017-10-31] MEDS ORDERED: ENAL5TAB PO (13:39)
[2017-10-31] MEDS ORDERED: PANT40TA3 PO (13:39)
[2017-10-31] MEDS ORDERED: VENTAER INH (14:58)
== END 2017-10-31 15:32 | disposition home or self-care (01) ==
LOC: NEPE 07:15 → NEDA 10:08 → NEPHCDU 11:27 → HCIS 10-31 09:32
PROVIDERS: ADMIT Family Medicine; ATTEND Family Medicine
DX: I51.81 Takotsubo syndrome (principal); I25.10 Atherosclerotic heart disease of native coronary artery without angina pectoris; Q21.9 Congenital malformation of cardiac septum, unspecified; I44.7 Left bundle-branch block, unspecified; J44.9 Chronic obstructive pulmonary disease, unspecified; J98.4 Other disorders of lung; K21.9 Gastro-esophageal reflux disease without esophagitis; F12.90 Cannabis use, unspecified, uncomplicated; F17.210 Nicotine dependence, cigarettes, uncomplicated
CPT/HCPCS: 71046; 78452; 80053; 82550; 82552; 83735; 83880; 84484; 85025; 85610; 85730; 93005; 93017; 93458; 94640; 94664; 96361; 96365; 99152; 99285; A9502; C1769; C1893; G0378; J1644; J2250; J7030; J7613; 85002; 93613; 93623; 93656; 93662; C1730; C1731; C1732; C1759; C1766; C2630; Q9967

== ENCOUNTER 2017-12-05 01:50 | Emergency (ER) | payer SELFPAY ==
[~2017-12-05] VITALS: Ht 188 cm; Wt 77.3 kg
[~2017-12-05 01:50] MED LIST changes: +ASA325 PO; +ENAL5TAB PO; -KCL20 PO; +PANT40TA3 PO; +VENTAER INH
[2017-12-05 01:53] VITALS: BP 164/87; PULSE 74; TEMP 98.2; O2SAT 98
[2017-12-05] MEDS ORDERED: SODIUM CHLORIDE 0.9% FLUSH 10 ML FLUSH IVF PRN (02:00)
--- NOTE | 2017-12-05 02:14 | RADRPT ---
EXAM DATE/TIME: 12/05/2017 02:00 [facility] COMPARISON: CHEST PA & LAT, October 29, 2017, 7:50. INDICATIONS : Shortness of breath. MEDICAL HISTORY : Chronic obstructive pulmonary disease. Hypertension Gastroesophageal reflux disease. SURGICAL HISTORY : Orthopedic surgeries ENCOUNTER: Initial ACUITY: 1 day PAIN SCORE: 0/10 LOCATION: Bilateral chest FINDINGS: A single view of the chest demonstrates the lungs to be symmetrically aerated without evidence of mas s, infiltrate or effusion. The cardiomediastinal contours are unremarkable. Osseous structures are intact. CONCLUSION: No acute disease. Rizwan Hinson MD on December 05, 2017 at 2:10 Board Certified Radiologist. This report was verified electronically.
[2017-12-05 02:16] LABS: BASOPHIL # 0.1 TH/MM3 (0-0.2); BASOPHIL % 0.7 % (0.0-2.0); EOSINOPHIL # 0.7 TH/MM3 (0-0.4); EOSINOPHIL % 5.2 % (0.0-4.0); HEMATOCRIT 39.5 % (39.0-51.0); HEMOGLOBIN 13.7 GM/DL (13.0-17.0); LYMPH % 25.8 % (9.0-44.0); LYMPHOCYTE # 3.5 TH/MM3 (1.0-4.8); MEAN CORPUSCULAR HEMOGLOBIN 30.9 PG (27.0-34.0); MEAN CORPUSCULAR HGB CONC 34.7 % (32.0-36.0); MEAN PLATELET VOLUME 11.2 FL (7.0-11.0); MONO % 9.8 % (0.0-8.0); MONOCYTE # 1.3 TH/MM3 (0-0.9); NEUT % 58.5 % (16.0-70.0); PLATELET COUNT 165 TH/MM3 (150-450); RED BLOOD COUNT 4.44 MIL/MM3 (4.50-5.90); RED CELL DISTRIBUTION WIDTH 13.7 % (11.6-17.2); WHITE BLOOD COUNT 13.6 TH/MM3 (4.0-11.0)
[2017-12-05 02:26] LABS: INTERNATIONAL NORMALIZED RATIO 1.1 RATIO; PROTHROMBIN TIME - PATIENT 10.9 SEC (9.8-11.6)
[2017-12-05 02:42] LABS: ALBUMIN 3.5 GM/DL (3.4-5.0); ALT (GPT) 266 U/L (12-78); AST (GOT) 153 U/L (15-37); BICARBONATE 29.3 MEQ/L (21.0-32.0); BLOOD UREA NITROGEN 19 MG/DL (7-18); CALCIUM 8.8 MG/DL (8.5-10.1); CHLORIDE 108 MEQ/L (98-107); CREATININE 1.18 MG/DL (0.60-1.30); GLOMERULAR FILTRATION RATE 64 ML/MIN (>89); GLUCOSE,RANDOM 92 MG/DL (74-106); MAGNESIUM 2.2 MG/DL (1.5-2.5); SODIUM (NA) 142 MEQ/L (136-145)
[2017-12-05 02:47] LABS: ALKALINE PHOSPHATASE 100 U/L (45-117); TOTAL BILIRUBIN ADULT 0.2 MG/DL (0.2-1.0); TROPONIN I LESS THAN 0.02 NG/ML (0.02-0.05)
--- NOTE | 2017-12-05 03:26 | PD ---
HPI Chief Complaint: Respiratory Symptoms Time Seen by Provider: 01:55 Travel History International Travel<30 days: No Contact w/Intl Traveler<30days: No Traveled to known affect area: No History of Present Illness HPI The patient is a 52 year old male who presents to the [facility] emergency department with a history of shortness of breath and wheezing that began this AM. He reports that he ran out of his rescue inhaler earlier today. He reports that he is also supposed to be on other medications, however he is currently unemployed and unable to afford them. He denies having any chest pain. He reports having a cough for two days that has been productive of yellow sputum. He is also had diarrhea for 2 days. The diarrhea has been occurring 1x per day. He denies having any blood in his stool or black or tarry stools. He reports that the stool is brown in color. On review of systems otherwise, the patient denies having any known recent fevers, neck pain , abdominal pain, vomiting, urinary symptoms, or neurologic symptoms. [facility] Past Medical History Narrative Medical The patient's past medical history is significant for COPD, GERD, recent cardiac catheterization done on October 31, 2017 that showed angiographically normal coronary arteries with evidence of Takotsubo syndrome with severe apical hypokinesis and reduced ejection fraction of 40%. Cardiovascular Problems: Yes (lbbb hx) COPD: Yes Gastrointestinal Disorders: Yes GERD: Yes Respiratory: Yes (COPD) Sickle Cell Disease: No Tetanus Vaccination: > 5 Years Influenza Vaccination: No Past Surgical History Narrative Surgical The patient's past surgical history is significant for right heel surgery, left hip sx, cardiac catheterization without stent placement Other Surgery: Yes (RIGHT HEEL FX 2005, L hip) Social History Alcohol Use: No Tobacco Use: Yes (1 PPD) Substance Use: No Allergies-Medications (Allergen,Severity, Reaction): Coded Allergies: No Known Allergies (Unverified Allergy, Unknown, 10/29/17) Reported Meds & Prescriptions Reported Meds & Active Scripts Active Lisinopril 10 Mg Tab 10 Mg PO DAILY Ventolin Hfa 18 GM Inh (Albuterol Sulfate) 90 Mcg/Act Aer 2 Puff INH Q4-6H PRN Pantoprazole (Pantoprazole Sodium) 40 Mg Tab 40 Mg PO DAILY Px Aspirin (Aspirin) 325 Mg Tab 325 Mg PO DAILY Review of Systems Except as stated in HPI: all other systems reviewed are Neg General / Constitutional: No: Fever Eyes: No: Visual changes HENT: Positive: Congestion, No: Headaches Cardiovascular: No: Chest Pain or Discomfort Respiratory: Positive: Cough, Shortness of Breath Gastrointestinal: No: Abdominal Pain Genitourinary: No: Dysuria Musculoskeletal: No: Pain Skin: No Rash Neurologic: No: Weakness Psychiatric: No: Depression Endocrine: No: Polydipsia Hematologic/Lymphatic: No: Easy Bruising Physical Exam Narrative General: The patient is a well-developed well-nourished male in no acute distress. Head and Neck exam: Head is normocephalic atraumatic. Eyes: EOMI, pupils are equal round and reactive to light. Nose: Midline septum with pink mucous membranes Mouth: Dentition unremarkable. Moist mucus membranes. Posterior oropharynx is not erythematous. No tonsillar hypertrophy. Uvula midline. Airway patent. Neck: No palpable lymphadenopathy. No nuchal rigidity. No thyromegaly. Cardiovascular: Regular rate and rhythm without murmurs, gallops, or rubs. Lungs: The patient received nebulizer treatments prior to arrival and reports feeling improved. The patient has soft expiratory wheezes audible bilaterally, no rhonchi, no crackles. No accessory muscle use noted. No paroxysmal abdominal breathing. No conversational dyspnea. Abdomen: Soft, without tenderness to palpation in all 4 quadrants of the abdomen. No guarding, rebound, or rigidity. Normal bowel sounds are audible. No tenderness on palpation of McBurney's point. Extremities: No clubbing, cyanosis, or edema. 2+ pulses in all 4 extremities. No calf tenderness on palpation. Back: No spinous process tenderness to palpation. No costovertebral angle tenderness to palpation. Neurologic Exam: Grossly nonfocal. Skin Exam: No rash noted. Intact skin that is warm and dry. Data Data Last Documented VS Vital Signs Date Time Temp Pulse Resp B/P (MAP) Pulse Ox O2 Delivery O2 Flow Rate FiO2 12/05/17 03:45 66 18 150/89 (109) 97 Room Air 12/05/17 01:53 98.2 Orders Orders Complete Blood Count With Diff (12/05/17 01:55) Comprehensive Metabolic Panel (12/05/17 01:55) B-Type Natriuretic Peptide (12/05/17 01:55) Act Partial Throm Time (Ptt) (12/05/17 01:55) Prothrombin Time / Inr (Pt) (12/05/17 01:55) Magnesium (Mg) (12/05/17 01:55) Ckmb (Isoenzyme) Profile (12/05/17 01:55) Troponin I (12/05/17 01:55) Urinalysis - C+S If Indicated (12/05/17 01:55) Iv Access Insert/Monitor (12/05/17 01:55) Electrocardiogram (12/05/17 01:55) Ecg Monitoring (12/05/17 01:55) Oximetry (12/05/17 01:55) Oxygen Administration (12/05/17 01:55) Chest, Single Ap (12/05/17 01:55) Sodium Chloride 0.9% Flush (Ns Flush) (12/05/17 02:00) CKMB (12/05/17 02:04) CKMB% (12/05/17 02:04) Albuterol Hfa Inh (Proair Hfa Inh) (12/05/17 03:30) Levofloxacin (Levaquin) (12/05/17 03:30) Lisinopril (Prinivil) (12/05/17 03:45) Aspirin Chew (Aspirin Chew) (12/05/17 03:45) Labs Laboratory Tests Test 12/05/17 02:04 12/05/17 03:45 White Blood Count 13.6 TH/MM3 Red Blood Count 4.44 MIL/MM3 Hemoglobin 13.7 GM/DL Hematocrit 39.5 % Mean Corpuscular Volume 89.0 FL Mean Corpuscular Hemoglobin 30.9 PG Mean Corpuscular Hemoglobin Concent 34.7 % Red Cell Distribution Width 13.7 % Platelet Count 165 TH/MM3 Mean Platelet Volume 11.2 FL Neutrophils (%) (Auto) 58.5 % Lymphocytes (%) (Auto) 25.8 % Monocytes (%) (Auto) 9.8 % Eosinophils (%) (Auto) 5.2 % Basophils (%) (Auto) 0.7 % Neutrophils # (Auto) 8.0 TH/MM3 Lymphocytes # (Auto) 3.5 TH/MM3 Monocytes # (Auto) 1.3 TH/MM3 Eosinophils # (Auto) 0.7 TH/MM3 Basophils # (Auto) 0.1 TH/MM3 CBC Comment DIFF FINAL Differential Comment Prothrombin Time 10.9 SEC Prothromb Time International Ratio 1.1 RATIO Activated Partial Thromboplast Time 25.9 SEC Blood Urea Nitrogen 19 MG/DL Creatinine 1.18 MG/DL Random Glucose 92 MG/DL Total Protein 8.0 GM/DL Albumin 3.5 GM/DL Calcium Level 8.8 MG/DL Magnesium Level 2.2 MG/DL Alkaline Phosphatase 100 U/L Aspartate Amino Transf (AST/SGOT) 153 U/L Alanine Aminotransferase (ALT/SGPT) 266 U/L Total Bilirubin 0.2 MG/DL Sodium Level 142 MEQ/L Potassium Level 3.8 MEQ/L Chloride Level 108 MEQ/L Carbon Dioxide Level 29.3 MEQ/L Anion Gap 5 MEQ/L Estimat Glomerular Filtration Rate 64 ML/MIN Total Creatine Kinase 127 U/L Creatine Kinase MB 2.9 NG/ML Troponin I LESS THAN 0.02 NG/ML B-Type Natriuretic Peptide 47 PG/ML Urine Color YELLOW Urine Turbidity CLEAR Urine pH 6.0 Urine Specific [place] 1.028 Urine Protein TRACE mg/dL Urine Glucose (UA) NEG mg/dL Urine Ketones NEG mg/dL Urine Occult Blood NEG Urine Nitrite NEG Urine Bilirubin NEG Urine Urobilinogen 2.0 MG/DL Urine Leukocyte Esterase NEG Urine RBC LESS THAN 1 /hpf Urine WBC LESS THAN 1 /hpf Urine Mucus FEW /lpf Microscopic Urinalysis Comment CULT NOT INDICATED MDM Medical Decision Making Medical Screen Exam Complete: Yes Emergency Medical Condition: Yes Medical Record Reviewed: Yes Interpretation(s) Last Impressions Chest X-Ray 12/05/17 0155 Signed Impressions: Service Date/Time: Tuesday, December 05, 2017 02:00 - CONCLUSION: No acute disease. Rizwan Hinson MD Differential Diagnosis Bronchitis, versus pneumonia, versus COPD exacerbation, versus congestive heart failure Narrative Course During the course of the patient's emergency department visit, the patient's history, examination, and differential diagnosis were reviewed with the patient. The patient was placed on a nuclear monitoring technician with oximetry and frequent blood pressure monitoring. The patient had IV access obtained and blood work sent for analysis. The patient was initially provided 2 puffs of a pro-air inhaler. The inhaler was dispensed to him. The patient's electronic medical record was also reviewed. He reports that he cannot afford to get any of his medications including his low-dose aspirin and Vasotec. The patient will have his CHARLINE inhibitor changed to lisinopril which is free at [employer]. The patient was given his first dose in the emergency department of lisinopril 10 mg p.o. 1. The patient's laboratory studies were reviewed and remarkable for a white count of 13.6, hemoglobin 13.7, platelets 165 with 9.8 monocytes., CMP is remarkable for a chloride of 108, GFR of 64, AST 153, ALT 266. The patient has a history of elevated liver enzymes in the past. He is unaware of being diagnosed with any liver disease. He denies drinking alcohol regularly. He denies ever being diagnosed with hepatitis. Cardiac enzymes are within normal limits, BNP is 47, PT PTT within normal limits, urinalysis unremarkable. Radiology studies were reviewed and remarkable for a chest x-ray that showed no acute abnormality. The patient will be given an outpatient lab slip for liver function testing and viral hepatitis testing. The patient is instructed to follow-up with the [facility] regarding his chronic medical conditions and his elevated liver enzymes. The patient is resting comfortably and feels better, is alert and in no distress. The patient's results and examination findings were discussed with the patient. The repeat examination is unremarkable and benign. The history, exam, diagnostic testing, and current condition do not suggest any significant pathology to warrant further testing, continued ED treatment, admission, or surgical evaluation at this point. The vital signs have been stable. The patient does not have uncontrollable pain, intractable vomiting, or other significant symptoms. The patient's condition is stable and appropriate for discharge. The patient will pursue further outpatient evaluation with a primary care physician or other designated or consulting physician as indicated in the discharge instructions. The patient expressed understanding and was agreeable with this plan. Diagnosis Primary Impression: COPD exacerbation Additional Impression: Bronchitis Referrals: [facility] 2 days Patient Instructions: COPD (Chronic Obstructive Pulmonary Disease) (ED), General Instructions Med/Other Pt SpecificInfo: Prescription(s) given Scripts Ciprofloxacin (Cipro) 500 Mg Tab 500 MG PO BID for Infection for 7 Days, #14 TAB 0 Refills Prov: Zuleyka Marcum MD 12/05/17 Lisinopril (Lisinopril) 10 Mg Tab 10 MG PO DAILY, #30 TAB 0 Refills Prov: Zuleyka Marcum MD 12/05/17 Disposition: 01 DISCHARGE HOME Condition: Stable Zuleyka Marcum MD Dec 05, 2017 03:26
[2017-12-05] MEDS ORDERED: ALBUTEROL SULFATE 90 MCG/ACT HFA 8 GM INHALER INH ONE (03:30)
[2017-12-05] MEDS ORDERED: LEVOFLOXACIN 500 MG TAB PO ONE (03:30)
[2017-12-05] MEDS ORDERED: LISI10TA3 PO (03:32)
[2017-12-05 03:45] VITALS: BP 150/89; PULSE 66; RESP 18; O2SAT 97
[2017-12-05] MEDS ORDERED: ASPIRIN 81 MG CHEW TAB CHEW ONE (03:45)
[2017-12-05] MEDS ORDERED: LISINOPRIL 10 MG TAB PO ONE (03:45)
[2017-12-05 03:57] LABS: BILIRUBIN, URINE NEG (NEG); BLOOD, URINE NEG (NEG); GLUCOSE,URINE NEG (NEG); KETONE, URINE NEG (NEG); MUCUS URINE FEW /lpf (OCC); NITRITE,URINE NEG (NEG); URINE COLOR YELLOW (YELLW/STRAW); URINE LEUKOCYTE ESTERASE NEG (NEG)
[2017-12-05] MEDS ORDERED: CIPR-9 PO (04:26)
--- NOTE | 2017-12-05 08:23 | EKG ---
Date Performed: 12/05/2017 Time Performed: 01:53:05 PTAGE: 52 years EKG: Sinus rhythm MARKED LEFT AXIS DEVIATION LEFT BUNDLE BRANCH BLOCK ABNORMAL ECG PREVIOUS TRACING : 10/29/2017 13.35 DOCTOR: Ольга Le Interpretating Date/Time 12/05/2017 08:22:11
== END 2017-12-05 04:48 | disposition home or self-care (01) ==
LOC: NEPE 01:50
DX: J44.1 Chronic obstructive pulmonary disease with (acute) exacerbation (principal); R74.8 Abnormal levels of other serum enzymes; I44.7 Left bundle-branch block, unspecified; F17.200 Nicotine dependence, unspecified, uncomplicated; Z79.899 Other long term (current) drug therapy
CPT/HCPCS: 71045; 80053; 81001; 82550; 82552; 83735; 83880; 84484; 85025; 85610; 85730; 93005

== ENCOUNTER 2017-12-14 09:59 | Emergency (ER) | payer SELFPAY ==
[~2017-12-14] VITALS: Ht 188 cm; Wt 78.0 kg
[~2017-12-14 09:59] MED LIST changes: +CIPR-9 PO; -ENAL5TAB PO; +LISI10TA3 PO
[2017-12-14 10:06] VITALS: BP 127/63; PULSE 73; RESP 17; TEMP 97.2; O2SAT 98
[2017-12-14] MEDS: RESP: ALBUTEROL 2.5 MG/IPRATROPIUM 0.5 MG NEB (SCH) INH (10:57)
[2017-12-14] MEDS ORDERED: SODIUM CHLORIDE 0.9% FLUSH 10 ML FLUSH IVF PRN (11:00)
[2017-12-14] MEDS ORDERED: methylPREDNISolone SOD SUCC 125 MG/2 ML VIAL IV PUSH ONE (11:00)
--- NOTE | 2017-12-14 11:07 | RADRPT ---
EXAM DATE/TIME: 12/14/2017 10:53 [facility] COMPARISON: CHEST SINGLE AP, December 05, 2017, 2:00. INDICATIONS : Shortness of breath. MEDICAL HISTORY : Chronic obstructive pulmonary disease. Hypertension Gastroesophageal reflux disease. SURGICAL HISTORY : None. ENCOUNTER: Initial ACUITY: 1 day PAIN SCORE: 0/10 LOCATION: Bilateral chest FINDINGS: A single view of the chest demonstrates the lungs to be symmetrically aerated without evidence of mas s, infiltrate or effusion. 3 mm nodule left t lung. The cardiomediastinal contours are unremarkable . Osseous structures are intact. CONCLUSION: 3 mm nodule left lung otherwise negative. Repeat PA and lateral chest would be of be nefit when patient is stable Akin Self MD FACR on December 14, 2017 at 11:03 Board Certified Radiologist. This report was verified electronically.
[2017-12-14 11:29] LABS: AUTOMATED NEUTROPHIL # 5.2 TH/MM3 (1.8-7.7); BASOPHIL # 0.1 TH/MM3 (0-0.2); BASOPHIL % 0.9 % (0.0-2.0); EOSINOPHIL # 0.5 TH/MM3 (0-0.4); EOSINOPHIL % 5.5 % (0.0-4.0); HEMATOCRIT 43.3 % (39.0-51.0); HEMOGLOBIN 14.8 GM/DL (13.0-17.0); LYMPH % 24.3 % (9.0-44.0); LYMPHOCYTE # 2.2 TH/MM3 (1.0-4.8); MEAN CELL VOLUME 88.8 FL (80.0-100.0); MEAN CORPUSCULAR HEMOGLOBIN 30.3 PG (27.0-34.0); MEAN CORPUSCULAR HGB CONC 34.1 % (32.0-36.0); MEAN PLATELET VOLUME 11.6 FL (7.0-11.0); MONO % 11.7 % (0.0-8.0); MONOCYTE # 1.1 TH/MM3 (0-0.9); NEUT % 57.6 % (16.0-70.0); PLATELET COUNT 134 TH/MM3 (150-450); RED BLOOD COUNT 4.88 MIL/MM3 (4.50-5.90); RED CELL DISTRIBUTION WIDTH 13.5 % (11.6-17.2); WHITE BLOOD COUNT 9.1 TH/MM3 (4.0-11.0)
--- NOTE | 2017-12-14 11:37 | PD ---
HPI Chief Complaint: Respiratory Symptoms Time Seen by Provider: 10:29 Travel History International Travel<30 days: No Contact w/Intl Traveler<30days: No Traveled to known affect area: No History of Present Illness HPI 52-year-old male, with history of COPD, presents to the emergency department with complaint of continued shortness of breath, cough, and generalized weakness since he was seen here last on December 05 and treated for COPD exacerbation. He was prescribed Cipro and given an albuterol inhaler which he says he is still taking the Cipro and has exhausted his albuterol inhaler. Said he ran out of his inhaler 2 days ago. Denies fever, vomiting, chest pain, nasal congestion, sore throat, ear pain. Reports wheezing. Reports tobacco use. Shortness of breath is worse with walking and activity. Better at rest. No known allergies. No primary care provider. History of COPD, GERD and states he had a stress test a couple weeks ago for his heart for unknown reason. Has no other medical complaints. No other modifying factors or associated signs and symptoms. PFSH Past Medical History Cardiovascular Problems: Yes (lbbb hx) COPD: Yes Gastrointestinal Disorders: Yes GERD: Yes Respiratory: Yes (COPD) Sickle Cell Disease: No Past Surgical History Other Surgery: Yes (RIGHT HEEL FX 2006, L hip) Social History Alcohol Use: Yes (OCCASIONAL) Tobacco Use: Yes (1 PPD) Substance Use: No Allergies-Medications (Allergen,Severity, Reaction): Coded Allergies: No Known Allergies (Unverified Allergy, Unknown, 12/14/17) Reported Meds & Prescriptions Reported Meds & Active Scripts Active Deltasone (Prednisone) 20 Mg Tab 40 Mg PO DAILY 5 Days start 12/15/2017 Ventolin Hfa 18 GM Inh (Albuterol Sulfate) 90 Mcg/Act Aer 2 Puff INH Q4-6H PRN Px Aspirin (Aspirin) 325 Mg Tab 325 Mg PO DAILY Review of Systems Except as stated in HPI: all other systems reviewed are Neg Physical Exam Narrative GENERAL: Well-nourished, well-developed male patient, in no acute distress; afebrile, nontoxic-appearing SKIN: Warm and dry. HEAD: Atraumatic. Normocephalic. EYES: Pupils equal and round. No scleral icterus. No injection or drainage. ENT: Mucosa pink and moist. No erythema or exudates. No uvular edema. No uvular , palatal, or tonsillar deviation. Airway patent. Nares without nasal blood, purulent drainage or septal hematoma. EARS: Bilateral pinnae and external canals appear within normal limits. Bilateral tympanic membranes without erythema, dullness or perforation. NECK: Trachea midline. No lymphadenopathy. CARDIOVASCULAR: Regular rate and rhythm. No murmur appreciated. RESPIRATORY: No accessory muscle use. Lungs with Wheezing throughout to auscultation. Breath sounds equal bilaterally. No retractions or tachypnea. No Audible wheezing noted. GASTROINTESTINAL: Abdomen soft, non-tender, nondistended. Hepatic and splenic margins not palpable. Bowel sounds are active 4 quadrants. MUSCULOSKELETAL: No obvious deformities. No clubbing. No cyanosis. No edema. NEUROLOGICAL: Awake and alert. Oriented 3. No obvious cranial nerve deficits. Motor grossly within normal limits. Normal speech. Moves all extremities. 5/5 strength to all extremities. PSYCHIATRIC: Appropriate mood and affect; insight and judgment normal. Data Data Last Documented VS Vital Signs Date Time Temp Pulse Resp B/P (MAP) Pulse Ox O2 Delivery O2 Flow Rate FiO2 12/14/17 13:57 12/14/17 13:00 55 20 99 Room Air 12/14/17 10:06 97.2 Orders Orders Basic Metabolic Panel (Bmp) (12/14/17 10:46) Complete Blood Count With Diff (12/14/17 10:46) Chest, Single Ap (12/14/17 10:46) Iv Access Insert/Monitor (12/14/17 10:46) Methylprednisolone So Succ Inj (Solumedr (12/14/17 11:00) Albuterol-Ipratropium Neb (Duoneb Neb) (12/14/17 11:00) Sodium Chloride 0.9% Flush (Ns Flush) (12/14/17 11:00) Ct Thorax/ Chest Wo Iv Contras (12/14/17 ) Sodium Chlor 0.9% 1000 Ml Inj (Ns 1000 M (12/14/17 12:15) Albuterol Hfa Inh (Proair Hfa Inh) (12/14/17 13:45) Ed Discharge Order (12/14/17 13:44) Labs Laboratory Tests Test 12/14/17 11:00 White Blood Count 9.1 TH/MM3 Red Blood Count 4.88 MIL/MM3 Hemoglobin 14.8 GM/DL Hematocrit 43.3 % Mean Corpuscular Volume 88.8 FL Mean Corpuscular Hemoglobin 30.3 PG Mean Corpuscular Hemoglobin Concent 34.1 % Red Cell Distribution Width 13.5 % Platelet Count 134 TH/MM3 Mean Platelet Volume 11.6 FL Neutrophils (%) (Auto) 57.6 % Lymphocytes (%) (Auto) 24.3 % Monocytes (%) (Auto) 11.7 % Eosinophils (%) (Auto) 5.5 % Basophils (%) (Auto) 0.9 % Neutrophils # (Auto) 5.2 TH/MM3 Lymphocytes # (Auto) 2.2 TH/MM3 Monocytes # (Auto) 1.1 TH/MM3 Eosinophils # (Auto) 0.5 TH/MM3 Basophils # (Auto) 0.1 TH/MM3 CBC Comment DIFF FINAL Differential Comment Blood Urea Nitrogen 28 MG/DL Creatinine 1.86 MG/DL Random Glucose 88 MG/DL Calcium Level 9.2 MG/DL Sodium Level 138 MEQ/L Potassium Level 5.2 MEQ/L Chloride Level 105 MEQ/L Carbon Dioxide Level 29.6 MEQ/L Anion Gap 3 MEQ/L Estimat Glomerular Filtration Rate 38 ML/MIN MDM Medical Decision Making Medical Screen Exam Complete: Yes Emergency Medical Condition: Yes Medical Record Reviewed: Yes Differential Diagnosis COPD exacerbation, pleural effusion, pneumonia Narrative Course 52-year-old male with history of COPD presents with continued shortness of breath and cough since he was seen last on December 05 for COPD exacerbation. He says he still taking ciprofloxacin and has exhausted his albuterol inhaler that he was given on his last visit. Denies chest pain. I reviewed his medical record and BNP 47 troponin less than 0.02. I discussed the patient with my attending physician, Dr. Marquez, and he agrees with my plan of care. DuoNeb 3, Solu-Medrol, chest x-ray, CBC, BMP ordered. 1135: Chest xray concludes: Chest X-Ray 12/14/17 1046 Signed Impressions: Service Date/Time: Thursday, December 14, 2017 10:53 - CONCLUSION: 3 mm nodule left lung otherwise negative. Repeat PA and lateral chest would be of benefit when patient is stable Akin Self MD FACR Discussed findings with Dr. Marquez and he recommends CT thorax. CT thorax ordered. 1215: CBC unremarkable. Platelet count 134. Potassium 5.2. BUN 28. Creatinine 1.86. Dr. Marquez has reviewed the labs and agrees with normal saline bolus. CT thorax changed to without IV contrast and normal saline bolus ordered. Chest X-Ray 12/14/17 1046 Signed Impressions: Service Date/Time: Thursday, December 14, 2017 10:53 - CONCLUSION: 3 mm nodule left lung otherwise negative. Repeat PA and lateral chest would be of benefit when patient is stable Akin Self MD FACR Chest CT 12/14/17 0000 Signed Impressions: Service Date/Time: Thursday, December 14, 2017 12:32 - CONCLUSION: 1. 5 mm nodules within the upper lobes bilaterally which are indeterminate. Followup CT of the chest in 6 months is recommended to confirm stability of these nodules. 2. Minimal biapical bullous emphysema. 3. Focal fibrotic scarring within the right middle lobe. 4. Degenerative changes and scoliosis of the thoracic spine. Umair Fischer MD Patient provided a copy of the CT report. Patient instructed to follow-up for repeat CT scan of the chest within 6 months. Instructed patient to follow-up with news producer. On reexamination the patient reports improvement in breathing. Denies shortness of breath or wheezing. Lungs with mild wheezing on auscultation. Patient is in no acute distress and without retractions or tachypnea. Oxygen saturation is 98% on room air. I did discuss additional breathing treatments and possibility of needing to stay in the hospital and the patient declined and says he feels comfortable and is ready to be discharged home. Albuterol inhaler ordered and given to the patient. Deltasone prescribed for home. Instructed patient to continue antibiotics as prescribed and complete full course. Instructed patient to follow up with primary care provider. Patient verbalizes understanding and agreement with treatment plan. Patient is medically cleared and stable for discharge. Discussed reasons to return to the emergency department. Patient agrees with treatment plan. The patients vital signs are stable and the patient is stable for outpatient follow- up and treatment. Patient discharged home, stable and in no acute distress. Diagnosis Primary Impression: COPD exacerbation Additional Impression: Lung nodules Referrals: Primary Care Physician Journeyman Welder Patient Instructions: COPD (Chronic Obstructive Pulmonary Disease) (ED), General Instructions Additional Instructions: Continue antibiotics until they are completed Use albuterol inhaler as needed for shortness of breath and/or wheezing Take oral steroids as prescribed and complete full course Avoid triggers such as smoking cigarettes, second hand smoke, dust, known allergens Follow-up with primary care provider Follow-up with news producer Follow-up in [address] of your chest as recommended by your CT scan done today here at [facility] Return to emergency department immediately with worsening of symptoms Med/Other Pt SpecificInfo: Prescription(s) given Scripts Prednisone (Deltasone) 20 Mg Tab 40 MG PO DAILY for 5 Days, #10 TAB 0 Refills start 12/15/2017 Prov: Edelmira Byrd 12/14/17 Disposition: 01 DISCHARGE HOME Condition: Stable Edelmira Byrd Dec 14, 2017 11:37
[2017-12-14 11:41] LABS: BICARBONATE 29.6 MEQ/L (21.0-32.0); CALCIUM 9.2 MG/DL (8.5-10.1); CREATININE 1.86 MG/DL (0.60-1.30)
[2017-12-14] MEDS ORDERED: SODIUM CHLOR 0.9% 1000 ML INJ 1,000 ML IV ONE (12:15)
[2017-12-14 13:00] VITALS: BP 121/67; PULSE 55; RESP 20; O2SAT 99
--- NOTE | 2017-12-14 13:22 | RADRPT ---
EXAM DATE/TIME: 12/14/2017 12:32 [facility] COMPARISON: CHEST SINGLE AP, December 14, 2017, 10:53. INDICATIONS : Shortness of breath, cough RADIATION DOSE: 6.05 CTDIvol (mGy) MEDICAL HISTORY : Chronic obstructive pulmonary disease. Cardiovascular disease Gastroesophageal reflux disease. SURGICAL HISTORY : None. ENCOUNTER: Initial ACUITY: 1 day PAIN SCALE: 0/10 LOCATION: chest TECHNIQUE: Volumetric scanning of the chest was performed. Using automated exposure control and adjustment of t he mA and/or kV according to patient size, radiation dose was kept as low as reasonably achievable to obtain optimal diagnostic quality images. DICOM format image data is available electronically for r eview and comparison. Follow-up recommendations for detected pulmonary nodules are based at a minimum on nodule size and pa tient risk factors according to Fleischner Society Guidelines. FINDINGS: LUNGS: There is no consolidation or pneumothorax. There is a 5 mm partially calcified nodule within the righ t upper lobe as well as a 5 mm noncalcified nodule within the left upper lobe. Followup CT of the delia st in 6 months would be helpful for further evaluation of these indeterminate nodules. No pulmonary n odule is identified within the left lower lung field to coincide with the questionable nodule on the plain film. Minimal biapical bullous emphysema is noted. No focal pneumonia is noted. Fibrotic scarri ng is noted within the right middle lobe. PLEURAE: There is no pleural thickening or pleural effusion. MEDIASTINUM: The heart and great vessels demonstrate no acute abnormality. There is no mediastinal or hilar lymph adenopathy. AXILLAE: Within normal limits. No lymphadenopathy. MUSCULOSKELETAL: Degenerative changes and scoliosis of the thoracic spine are noted. MISCELLANEOUS: The visualized upper abdominal organs demonstrate no acute abnormality. CONCLUSION: 1. 5 mm nodules within the upper lobes bilaterally which are indeterminate. Followup CT of the chest in 6 months is recommended to confirm stability of these nodules. 2. Minimal biapical bullous emphysema. 3. Focal fibrotic scarring within the right middle lobe. 4. Degenerative changes and scoliosis of the thoracic spine. Umair Fischer MD on December 14, 2017 at 13:11 Board Certified Radiologist. This report was verified electronically.
[2017-12-14] MEDS ORDERED: PRED-503 PO (13:43)
[2017-12-14] MEDS ORDERED: ALBUTEROL SULFATE 90 MCG/ACT HFA 8 GM INHALER INH ONE (13:45)
== END 2017-12-14 14:05 | disposition home or self-care (01) ==
LOC: NEPD 09:59
DX: J44.1 Chronic obstructive pulmonary disease with (acute) exacerbation (principal); M51.34 Other intervertebral disc degeneration, thoracic region; M41.9 Scoliosis, unspecified; K21.9 Gastro-esophageal reflux disease without esophagitis; F17.200 Nicotine dependence, unspecified, uncomplicated; Z79.51 Long term (current) use of inhaled steroids; Z79.82 Long term (current) use of aspirin
CPT/HCPCS: 71045; 71250; 80048; 85025; 94640; 94664; 96361; 96374; 99284; J2930; J7030